=== PATIENT | female | born 1960 | race Caucasian/White ===

== ENCOUNTER 2018-05-25 15:19 | Emergency (ER) | payer OTHER ==
--- NOTE | 2018-05-25 16:11 | RAD REPORT ---
EXAM DESCRIPTION: RAD - Elbow Left 3 View - 05/25/2018 4:02 pm CLINICAL HISTORY: Left elbow pain status post fall FINDINGS: A joint effusion is present. No fracture is visualized. However in the setting of trauma a joint effusion usually indicates an occult fracture. Radial head/ neck is the most common site. No dislocation is seen. Bones are osteoporotic
--- NOTE | 2018-05-25 17:32 | ER ---
Nurse's Notes [facility] Name: Joanna Baxter Age: 57 yrs Sex: Female : 1960 Arrival Date: 05/25/2018 Time: 15:22 Bed 18 Private MD: Melvin Chamorro Diagnosis: Pain in left elbow-possible occult fracture Presentation: 05/25 15:24 Presenting complaint: Patient states: pain to elbow, down to my forearm, down to my ch wrist and up to my shoulder after falling around 1300. I scraped my knee and my nose too. I tripped over the sidewalk. Care prior to arrival: Medication(s) given: Tylenol. Mechanism of Injury: Fall from standing position. Trauma event details: Injury occurred in the [facility], Injury occurred: on a street or highway. Injury occurred: May 25, 2018 Injury occurred at: 13:00. 15:24 Acuity: LUZ 4 15:24 Method Of Arrival: Ambulatory 15:27 Transition of care: patient was not received from another setting of care. Onset of ch symptoms was May 25, 2018 at 13:00. Risk Assessment: Do you want to hurt yourself or someone else? Patient reports no desire to harm self or others. Initial Sepsis Screen: Does the patient meet any 2 criteria? No. Patient's initial sepsis screen is negative. Does the patient have a suspected source of infection? No. Patient's initial sepsis screen is negative. Triage Assessment: 15:28 General: Appears in no apparent distress. comfortable, Behavior is calm, cooperative, ch appropriate for age. Pain: Complains of pain in left arm. Trauma Activation: Not Applicable Physician: ED Physician; Name: ; Notified At: ; Arrived At: Physician: General Surgeon; Name: ; Notified At: ; Arrived At: Physician: Radiology; Name: ; Notified At: ; Arrived At: Physician: Respiratory; Name: ; Notified At: ; Arrived At: Physician: Lab; Name: ; Notified At: ; Arrived At: Historical: - Allergies: 15:28 No Known Allergies; ch - Home Meds: 15:28 insulin [Active]; Metoprolol Tartrate Oral [Active]; Lisinopril Oral [Active]; Lasix ch Oral [Active]; - PMHx: 15:28 Diabetes - IDDM; Hyperlipidemia; Hypertension; ch - PSHx: 15:28 ; carpel tunnel release; ch - Immunization history: Last tetanus immunization: > 10 years ago. - Social history:: Smoking status: Patient/guardian denies using tobacco, Patient uses alcohol, occasionally. Patient/guardian denies using street drugs. - Ebola Screening: : Patient negative for fever greater than or equal to 101.5 degrees Fahrenheit, and additional compatible Ebola Virus Disease symptoms Patient denies exposure to infectious person Patient denies travel to an Ebola-affected area in the 21 days before illness onset No symptoms or risks identified at this time. Screenin:20 Abuse screen: Denies threats or abuse. Denies injuries from another. Nutritional sg screening: No deficits noted. Tuberculosis screening: No symptoms or risk factors identified. Never had TB. Fall Risk Fall in past 12 months (25 points). Primary Survey: 15:24 A: Airway: patent. Breathing/Chest: Respiratory pattern: regular, Respiratory effort: ch spontaneous, unlabored, Breath sounds: clear. Circulation: Skin color: pink. Disability Alert. 18:27 Reassessment Airway Airway Patent Breathing/Chest Respiratory pattern Regular sr5 Respiratory effort Spontaneous Unlabored Circulation Pulses Palpable Disability Alert. Secondary Survey: 15:24 HEENT: Face Other pt has abrasion to nose and lip. Gastrointestinal: No deficits noted. ch : No signs and/or symptoms were reported regarding the genitourinary system. Musculoskeletal: Capillary refill < 3 seconds, in bilateral fingers. toes. Range of motion: limited in left elbow. Assessment: 17:20 General: Appears in no apparent distress. uncomfortable, well groomed, well developed, sg well nourished, Behavior is calm, cooperative, appropriate for age. Pain: Complains of pain in left elbow Pain does not radiate. Quality of pain is described as throbbing. Neuro: Level of Consciousness is awake, alert, obeys commands, Gait is steady, Speech is normal, Facial symmetry appears normal. Cardiovascular: No deficits noted. Patient's skin is warm and dry. Respiratory: Airway is patent Respiratory effort is even, unlabored, Respiratory pattern is regular, symmetrical. GI: No deficits noted. Abdomen is round non-distended. : No signs and/or symptoms were reported regarding the genitourinary system. EENT: No signs and/or symptoms were reported regarding the EENT system. Derm: Skin is pink, warm \T\ dry. Musculoskeletal: Circulation, motion, and sensation intact. Range of motion: intact in all extremities, Swelling absent. 18:27 Reassessment: Patient is alert, oriented x 3, equal unlabored respirations, skin sr5 warm/dry/pink. Splint in place to LEFT arm, sling, and ice pack in place. Cap refill <3 secs. Splint education provided. DC instructions provided with RX for tylenol/codeine. Steady gait out of ER with family. Pt wants note indicating fall occurred while at work today. Vital Signs: 15:28 BP 138 / 77; Pulse 73; Resp 15; Temp 98.9; Pulse Ox 99% on R/A; Weight 76.2 kg; Height ch 5 ft. 9 in. (175.26 cm); Pain 8/10; 18:10 BP 131 / 76; Pulse 70; Resp 16; Temp 99.2; Pulse Ox 97% on R/A; Pain 4/10; sr5 15:28 Body Mass Index 24.81 (76.20 kg, 175.26 cm) Ramin Coma Score: 18:27 Eye Response: spontaneous(4). Verbal Response: oriented(5). Motor Response: obeys sr5 commands(6). Total: 15. Trauma Score (Adult): 18:27 Eye Response: spontaneous(1); Verbal Response: oriented(1); Motor Response: obeys sr5 commands(2); Systolic BP: > 89 mm Hg(4); Respiratory Rate: 10 to 29 per min(4); [place] Score: 15; Trauma Score: 12 ED Course: 15:22 Patient arrived in ED. sb2 15:22 Melvin Chamorro MD is Private Physician. sb2 15:26 Triage completed. ch 15:28 Arm band placed on left wrist. Patient placed in waiting room. ch 16:01 X-ray completed. Portable x-ray completed in exam room. Patient tolerated procedure ml well. 16:02 XRAY Elbow LEFT 3 view In Process Unspecified. EDMS 17:17 Boone Maria NP is PHCP. pm1 17:17 Octaviano Jack MD is Attending Physician. pm1 17:31 Reagan Kim MD is Referral Physician. pm1 17:45 No provider procedures requiring assistance completed. Patient did not have IV access sg during this emergency room visit. Feng wrap to left elbow and left wrist Orthoglass splint: posterior arm Sling applied to left arm. 17:47 Gabby Boyd, RN is Primary Nurse. hb 17:58 Seth Stewart, RN is Primary Nurse. sg 18:27 Patient has correct armband on for positive identification. Bed in low position. Call sr5 light in reach. 18:27 Patient maintains SpO2 saturation greater than 95% on room air. sr5 18:32 Thermoregulation: warm blanket given to patient. sr5 Administered Medications: 17:50 Drug: [place] 10 mg-325 mg 1 tabs Route: PO; sg 18:20 Follow up: Response: Pain is decreased sr5 Output: 18:27 Urine: 150ml (Voided); Total: 150ml. sr5 Outcome: 17:31 Discharge ordered by MD. pm1 18:26 Patient left the ED. sr5 18:27 Discharged to home ambulatory, with family. sr5 18:27 Condition: good 18:31 Patient's length of stay in the Emergency Department was greater than 2 hours. ER sr5 dispoPatient's length of stay extended due to 18:32 Discharge instructions given to patient, family, Instructed on discharge instructions, sr5 follow up and referral plans. medication usage, splint care Demonstrated understanding of instructions, follow-up care, medications, splint care, Prescriptions given X 1. Signatures: Dispatcher [employer] EDMS Angela Hoyt RN RN Seth Stewart RN RN sg Lopez, Melissa ml Marinas, Patrick, FINANCIAL SERVICES AUDITOR FINANCIAL SERVICES AUDITOR pm1 Gabby Boyd RN RN hb Resecker, Sam, RN RN sr5 Marcie Henao sb2
--- NOTE | 2018-05-25 17:32 | EDPHYS ---
Physician Documentation [facility] Name: Joanna Baxter Age: 57 yrs Sex: Female : 1960 Arrival Date: 05/25/2018 Time: 15:22 Bed 18 Private MD: Melvin Chamorro ED Physician Octaviano Jack HPI: 05/25 17:18 This 57 yrs old Female presents to ER via Ambulatory with complaints of Fall pm1 Injury - left elbow pain. 17:18 Details of fall: The patient fell from an upright position, while walking. Onset: The pm1 symptoms/episode began/occurred just prior to arrival. Associated injuries: The patient sustained nose, abrasion, right knee, abrasion, left elbow, painful injury, swelling, Pain. Severity of symptoms: in the emergency department the symptoms are unchanged. The patient has not experienced similar symptoms in the past. The patient has not recently seen a physician. Patient was walking and tripped on the sidewalk. Patient landed on her left elbow and scratched her right knee and nose. Patient without any headache, LOC, neck pain. Historical: - Allergies: 15:28 No Known Allergies; ch - Home Meds: 15:28 insulin [Active]; Metoprolol Tartrate Oral [Active]; Lisinopril Oral [Active]; Lasix ch Oral [Active]; - PMHx: 15:28 Diabetes - IDDM; Hyperlipidemia; Hypertension; ch - PSHx: 15:28 ; carpel tunnel release; ch - Immunization history: Last tetanus immunization: > 10 years ago. - Social history:: Smoking status: Patient/guardian denies using tobacco, Patient uses alcohol, occasionally. Patient/guardian denies using street drugs. - Ebola Screening: : Patient negative for fever greater than or equal to 101.5 degrees Fahrenheit, and additional compatible Ebola Virus Disease symptoms Patient denies exposure to infectious person Patient denies travel to an Ebola-affected area in the 21 days before illness onset No symptoms or risks identified at this time. ROS: 17:18 Constitutional: Negative for fever, chills, and weight loss, Eyes: Negative for injury, pm1 pain, redness, and discharge, ENT: Negative for injury, pain, and discharge, Neck: Negative for injury, pain, and swelling, Cardiovascular: Negative for chest pain, palpitations, and edema, Respiratory: Negative for shortness of breath, cough, wheezing, and pleuritic chest pain, Abdomen/GI: Negative for abdominal pain, nausea, vomiting, diarrhea, and constipation, Back: Negative for injury and pain, : Negative for injury, bleeding, discharge, and swelling. 17:18 Neuro: Negative for headache, weakness, numbness, tingling, and seizure. 17:18 MS/extremity: Positive for pain, swelling, of the left elbow. 17:18 Skin: Positive for abrasion(s), of the right knee and nose. Exam: 17:18 Constitutional: This is a well developed, well nourished patient who is awake, alert, pm1 and in no acute distress. Eyes: Pupils equal round and reactive to light, extra-ocular motions intact. Lids and lashes normal. Conjunctiva and sclera are non-icteric and not injected. Cornea within normal limits. Periorbital areas with no swelling, redness, or edema. ENT: Nares patent. No nasal discharge, no septal abnormalities noted. Tympanic membranes are normal and external auditory canals are clear. Oropharynx with no redness, swelling, or masses, exudates, or evidence of obstruction, uvula midline. Mucous membranes moist. 17:18 Neck: Trachea midline, no thyromegaly or masses palpated, and no cervical lymphadenopathy. Supple, full range of motion without nuchal rigidity, or vertebral point tenderness. No Meningismus. Chest/axilla: Normal chest wall appearance and motion. Nontender with no deformity. No lesions are appreciated. Cardiovascular: Regular rate and rhythm with a normal S1 and S2. No gallops, murmurs, or rubs. Normal PMI, no JVD. No pulse deficits. Respiratory: Lungs have equal breath sounds bilaterally, clear to auscultation and percussion. No rales, rhonchi or wheezes noted. No increased work of breathing, no retractions or nasal flaring. Abdomen/GI: Soft, non-tender, with normal bowel sounds. No distension or tympany. No guarding or rebound. No evidence of tenderness throughout. Back: No spinal tenderness. No costovertebral tenderness. Full range of motion. 17:18 Head/face: Noted is no obvious of injury or deformity except abrasion(s), of the nose. 17:18 Musculoskeletal/extremity: Extremities: grossly normal except: noted in the left elbow: swelling, tenderness. 17:18 Skin: Appearance: normal except for affected area, injury, abrasion(s), small abrasion noted, of the right knee. 17:18 Neuro: Orientation: is normal, Motor: moves all fours. Vital Signs: 15:28 BP 138 / 77; Pulse 73; Resp 15; Temp 98.9; Pulse Ox 99% on R/A; Weight 76.2 kg; Height ch 5 ft. 9 in. (175.26 cm); Pain 8/10; 18:10 BP 131 / 76; Pulse 70; Resp 16; Temp 99.2; Pulse Ox 97% on R/A; Pain 4/10; sr5 15:28 Body Mass Index 24.81 (76.20 kg, 175.26 cm) ch Ramin Coma Score: 18:27 Eye Response: spontaneous(4). Verbal Response: oriented(5). Motor Response: obeys sr5 commands(6). Total: 15. Trauma Score (Adult): 18:27 Eye Response: spontaneous(1); Verbal Response: oriented(1); Motor Response: obeys sr5 commands(2); Systolic BP: > 89 mm Hg(4); Respiratory Rate: 10 to 29 per min(4); Flas[place] Score: 15; Trauma Score: 12 Procedures: 18:00 Splinting: Splint applied to left elbow using Orthoglass splint, applied by tech. pm1 Examined by me, post splint application: neurovascular intact, 2+ distal pulses palpable, brisk capillary refill noted, Patient tolerated well. MDM: 17:17 Patient medically screened. pm1 17:30 Data reviewed: vital signs. Data interpreted: Pulse oximetry: on room air is 99 %. pm1 Interpretation: normal. Counseling: I had a detailed discussion with the patient and/or guardian regarding: the historical points, exam findings, and any diagnostic results supporting the discharge/admit diagnosis, radiology results, the need for outpatient follow up, for definitive care, a orthopedic surgeon, to return to the emergency department if symptoms worsen or persist or if there are any questions or concerns that arise at home. 05/25 15:30 Order name: XRAY Elbow LEFT 3 view; Complete Time: 17:18 05/25 15:30 Order name: Arm-Sling; Complete Time: 15:30 05/25 15:30 Order name: Ice pack; Complete Time: 15:30 05/25 17:33 Order name: Splint - Elbow - Posterior; Complete Time: 17:51 pm1 Administered Medications: 17:50 Drug: [place] 10 mg-325 mg 1 tabs Route: PO; 18:20 Follow up: Response: Pain is decreased sr5 Disposition: 05/25/18 17:31 Discharged to Home. Impression: Pain in left elbow - possible occult fracture. - Condition is Stable. - Discharge Instructions: Cast or Splint Care, Adult, Elbow Fracture, Pediatric, Elbow Contusion, How to Use a Sling. - Prescriptions for Tylenol- Codeine #3 300-30 mg Oral Tablet - take 2 tablets by ORAL route every 6 hours As needed; 20 tablet. - Medication Reconciliation Form, Thank You Letter, Prescription Opioid Use form. - Follow up: Emergency Department; When: As needed; Reason: Worsening of condition. Follow up: Reagan Kim MD; When: 2 - 3 days; Reason: Recheck today's complaints, Continuance of care, Re-evaluation by your physician. - Problem is new. - Symptoms have improved. Addendum: 05/28/2018 10:13 Co-signature as Attending Physician, Octaviano Jack MD I agree with the assessment and k dr plan of care. Signatures: Dispatcher [employer] EDMS Angela Hoyt, RN CLYDE Seth Stewart RN CLYDE Octaviano Jack MD MD [facility] Boone Maria, ARISTEO MARINE FIRER pm1 [facility] CenterClaude ashton RN RN sr5 Corrections: (The following items were deleted from the chart) 05/25 18:26 17:31 05/25/2018 17:31 Discharged to Home. Impression: Pain in left elbow - possible sr5 occult fracture. Condition is Stable. Forms are Medication Reconciliation Form, Thank You Letter, Antibiotic Education, Prescription Opioid Use. Follow up: Emergency Department; When: As needed; Reason: Worsening of condition. Follow up: Reagan Kim; When: 2 - 3 days; Reason: Recheck today's complaints, Continuance of care, Re-evaluation by your physician. Problem is new. Symptoms have improved. pm1
[2018-05-25] MEDS ORDERED: HYDROCODONE/APAP 10/325 TAB ONE (17:54)
[2018-05-25 18:52] VITALS: BP 138/77; TEMP 98.9; O2SAT 99
== END 2018-05-25 18:26 | disposition home or self-care (01) ==
LOC: ER 15:19
PROC: 2W3DX1Z Immobilization of Left Lower Arm using Splint (ICD-10-PCS; principal; 2018-05-25)
DX: M25.522 Pain in left elbow (principal); I10 Essential (primary) hypertension; E11.9 Type 2 diabetes mellitus without complications; E78.5 Hyperlipidemia, unspecified; W01.10XA Fall on same level from slipping, tripping and stumbling with subsequent striking against unspecified object, initial encounter; Y93.9 Activity, unspecified; Y92.89 Other specified places as the place of occurrence of the external cause
CPT/HCPCS: 99284

== ENCOUNTER 2018-08-02 12:11 | Emergency (ER) | payer OTHER ==
[2018-08-02] MEDS ORDERED: KETOROLAC 30 MG/ML INJ ONE (13:03)
[2018-08-02] MEDS ORDERED: NA CHLORIDE 0.9% 1,000 ML ONE (13:03)
[2018-08-02 13:11] LABS: Urine Bacteria LOADED /HPF (<20); Urine Culture Reflex Order REFLEXED
--- NOTE | 2018-08-02 13:26 | RAD REPORT ---
EXAM DESCRIPTION: CT - Head Brain Wo Cont - 08/02/2018 1:18 pm COMPARISON: None. TECHNIQUE: Axial 5 mm thick images of the head were obtained without IV contrast. All CT scans are performed using dose optimization technique as appropriate and may include automated exposure control or mA/KV adjustment according to patient size. FINDINGS: No intracranial hemorrhage, mass, edema or shift of mid-line structures. No acute infarcti on changes seen. No abnormal extra-axial fluid collections. Ventricles are normal. No significant atr ophy or chronic ischemic change. Mastoid air cells and visualized portions of the paranasal sinuses are clear. No acute bony findings. IMPRESSION: Negative non-contrast CT head examination.
[2018-08-02 13:43] LABS: Absolute Lymphocytes (CBC) 0.5 K/uL (0.7-4.9); Absolute Monocytes 0.5 K/uL (0.1-1.3); Absolute Neutrophil 6.2 K/uL (1.8-8.0); Basophils % 0.7 % (0-1.3); Hematocrit 34.7 % (36.0-45.0); MCH 31.3 pg (27.0-35.0); MCV 88.5 fL (80-100); MPV 8.8 fL (7.6-11.3); Monocytes % 6.7 % (3.3-12.3); RBC Red Blood Cell Count 3.92 M/uL (3.86-4.86)
[2018-08-02] MEDS ORDERED: CEFTRIAXONE/SWI 1gm 1 GM/10 ML SYR ONE (13:48)
[2018-08-02 13:54] LABS: Potassium 3.7 mmol/L (3.5-5.1)
[2018-08-02 14:06] LABS: Urine White Blood Cell Casts OK
[2018-08-02 14:07] LABS: Blood Morphology Comment NOT SEEN (NOT SEEN); Platelet Estimate ADEQ
--- NOTE | 2018-08-02 14:43 | ER ---
Nurse's Notes [facility] Name: Joanna Baxter Age: 57 yrs Sex: Female : 1960 Arrival Date: 08/02/2018 Time: 12:13 Bed 15 Private MD: Melvin Chamorro Diagnosis: Cystitis;Headache Presentation: 08/02 12:19 Presenting complaint: Patient states: occipital headache last night and frontal sv headache this morning. c/o photosensitivity, fever, chills, nausea started last night. Tylenol taken at 0900, ASA taken at 1000. Transition of care: patient was not received from another setting of care. Onset of symptoms was August 01, 2018. Care prior to arrival: None. 12:19 Method Of Arrival: Ambulatory sv 12:19 Acuity: LUZ 3 sv 12:45 Risk Assessment: Do you want to hurt yourself or someone else? Patient reports no em desire to harm self or others. Initial Sepsis Screen: Does the patient meet any 2 criteria? No. Patient's initial sepsis screen is negative. Does the patient have a suspected source of infection? No. Patient's initial sepsis screen is negative. Triage Assessment: 12:19 Headache History: The patient has had previous headaches and this one is different than sv previous episodes. General: Appears in no apparent distress. uncomfortable, Behavior is calm, cooperative. Pain: Complains of pain in forehead, right sikh and left sikh Pain currently is 10 out of 10 on a pain scale. Neuro: Level of Consciousness is awake, alert, obeys commands, Oriented to person, place, time, situation, Moves all extremities. Full function Gait is steady, Speech is normal, Reports photophobia. Respiratory: Respiratory effort is even, unlabored, Respiratory pattern is regular, symmetrical. 15:01 Pain: Also complains of. aj Historical: - Allergies: 12:20 No Known Allergies; sv - PMHx: 12:20 Diabetes - IDDM; Hyperlipidemia; Hypertension; sv - PSHx: 12:20 ; carpel tunnel release; sv - Immunization history:: Adult Immunizations up to date. - Social history:: Smoking status: Patient/guardian denies using tobacco. - Ebola Screening: : Patient negative for fever greater than or equal to 101.5 degrees Fahrenheit, and additional compatible Ebola Virus Disease symptoms Patient denies exposure to infectious person Patient denies travel to an Ebola-affected area in the 21 days before illness onset No symptoms or risks identified at this time. Screenin:45 Abuse screen: Denies threats or abuse. Nutritional screening: No deficits noted. em Tuberculosis screening: No symptoms or risk factors identified. Fall Risk None identified. Assessment: 12:50 General: Appears in no apparent distress. comfortable, Behavior is calm, cooperative, em Reports fever for 0-12 hours. Pain: Complains of pain in left sikh and right sikh and forehead. Neuro: Level of Consciousness is awake, alert, obeys commands, Oriented to person, place, time, situation, Moves all extremities. Gait is steady, Speech is normal, Facial symmetry appears normal, Reports headache Denies weakness dizziness. Cardiovascular: Capillary refill < 3 seconds Patient's skin is warm and dry. Respiratory: Airway is patent Respiratory effort is even, unlabored, Respiratory pattern is regular, symmetrical. GI: Abdomen is flat, Abd is soft and non tender X 4 quads. : Urine is orange in color, pt states she has been taking Azo Reports burning with urination, pain with urination. EENT: No signs and/or symptoms were reported regarding the EENT system. Derm: Skin is intact, Skin is pink, warm \T\ dry. Musculoskeletal: Range of motion: intact in all extremities. 12:50 Reassessment: I agree with assessment completed by Chance Whitley LVN . aa5 14:15 Reassessment: Patient appears in no apparent distress at this time. Patient and/or em family updated on plan of care and expected duration. Pain level reassessed. Patient is alert, oriented x 3, equal unlabored respirations, skin warm/dry/pink. 15:03 Reassessment: Patient appears in no apparent distress at this time. Patient and/or em family updated on plan of care and expected duration. Pain level reassessed. Patient is alert, oriented x 3, equal unlabored respirations, skin warm/dry/pink. Vital Signs: 12:20 BP 127 / 75; Pulse 94; Resp 18; Temp 98.4; Pulse Ox 94% ; Weight 72.57 kg; Height 5 ft. sv 5 in. (165.10 cm); Pain 10/10; 15:00 BP 139 / 74; Pulse 81; Resp 16; Pulse Ox 94% on R/A; aj 12:20 Body Mass Index 26.63 (72.57 kg, 165.10 cm) sv ED Course: 12:13 Patient arrived in ED. mr 12:14 Melvin Chamorro MD is Private Physician. mr 12:20 Triage completed. sv 12:20 Arm band placed on. sv 12:21 Chance Whitley LVN is Primary Nurse. em 12:22 George Posada MD is Attending Physician. gs 12:45 Patient has correct armband on for positive identification. Bed in low position. Call em light in reach. Adult w/ patient. 12:45 No provider procedures requiring assistance completed. em 13:18 CT Head Brain wo Cont In Process Unspecified. EDMS 13:30 Initial lab(s) drawn, by me, sent to lab. Inserted saline lock: 20 gauge in right em antecubital area, using aseptic technique. Blood collected. 15:00 IV discontinued, intact, bleeding controlled, No redness/swelling at site. Pressure aj dressing applied. Administered Medications: 13:35 Drug: NS 0.9% 1000 ml Route: IV; Rate: 1 bolus; Site: right antecubital; aa5 15:02 Follow up: IV Status: Completed infusion; IV Intake: 1000ml em 13:35 Drug: TORadol 30 mg Route: IVP; Site: right antecubital; aa5 14:00 Follow up: Response: No adverse reaction; Pain is decreased em 14:11 Drug: Rocephin - (cefTRIAXone) 1 grams Route: IVPB; Infused Over: 30 mins; Site: right aa5 antecubital; 15:00 Follow up: IV Status: Completed infusion; IV Intake: 10ml em Intake: 15:00 IV: 10ml; Total: 10ml. em 15:02 IV: 1000ml; Total: 1010ml. em Outcome: 14:42 Discharge ordered by . gs 15:00 Discharged to home ambulatory, with family. aj 15:00 Condition: good 15:00 Discharge instructions given to patient, Instructed on discharge instructions, follow up and referral plans. medication usage, Demonstrated understanding of instructions, follow-up care, medications, Prescriptions given X 1. 15:03 Patient left the ED. em Addendum: 08/05/2018 07:16 Addendum: Culture Results: Positive urine culture. No further action required. Bacteria i w sensitive to prescribed antibiotic. Signatures: Dispatcher [employer] Nadine Cooepr, RN Dianelys Guevara, RN CLYDE laith Gautam, Isis mr Gutierrez, Chance, SEISMOMETER OPERATOR SEISMOMETER OPERATOR Rachel Clements, RN Denise Guerrero, RN RN aa5 George Posada MD MD gs Corrections: (The following items were deleted from the chart) 08/02 16:59 12:50 General: Appears in no apparent distress. comfortable, Behavior is calm, aa5 cooperative, Reports fever for em
--- NOTE | 2018-08-02 14:43 | EDPHYS ---
Physician Documentation [facility] Name: Joanna Baxter Age: 57 yrs Sex: Female : 1960 Arrival Date: 08/02/2018 Time: 12:13 Bed 15 Private MD: Melvin Chamorro ED Physician George Posada HPI: 08/02 15:21 This 57 yrs old Female presents to ER via Ambulatory with complaints of gs Urinary Problem, Headache, Fever. 15:21 Onset: The symptoms/episode began/occurred 3 day(s) ago, and became persistent. gs Modifying factors: The symptoms are alleviated by nothing, the symptoms are aggravated by nothing. Associated signs and symptoms: Pertinent positives: fever. Severity of symptoms: At their worst the symptoms were moderate, in the emergency department the symptoms have improved, moderately. The patient has experienced similar episodes in the past, a few times. Historical: - Allergies: 12:20 No Known Allergies; sv - PMHx: 12:20 Diabetes - IDDM; Hyperlipidemia; Hypertension; sv - PSHx: 12:20 ; carpel tunnel release; sv - Immunization history:: Adult Immunizations up to date. - Social history:: Smoking status: Patient/guardian denies using tobacco. - Ebola Screening: : Patient negative for fever greater than or equal to 101.5 degrees Fahrenheit, and additional compatible Ebola Virus Disease symptoms Patient denies exposure to infectious person Patient denies travel to an Ebola-affected area in the 21 days before illness onset No symptoms or risks identified at this time. ROS: 15:21 Neuro: Positive for headache, said sudden onset last night sudden severe, all but gs resolved now.. 15:21 All other systems are negative. gs Exam: 15:21 Head/Face: Normocephalic, atraumatic. Eyes: Pupils equal round and reactive to light, gs extra-ocular motions intact. Lids and lashes normal. Conjunctiva and sclera are non-icteric and not injected. Cornea within normal limits. Periorbital areas with no swelling, redness, or edema. ENT: Nares patent. No nasal discharge, no septal abnormalities noted. Tympanic membranes are normal and external auditory canals are clear. Oropharynx with no redness, swelling, or masses, exudates, or evidence of obstruction, uvula midline. Mucous membranes moist. Neck: Trachea midline, no thyromegaly or masses palpated, and no cervical lymphadenopathy. Supple, full range of motion without nuchal rigidity, or vertebral point tenderness. No Meningismus. Chest/axilla: Normal chest wall appearance and motion. Nontender with no deformity. No lesions are appreciated. Cardiovascular: Regular rate and rhythm with a normal S1 and S2. No gallops, murmurs, or rubs. Normal PMI, no JVD. No pulse deficits. Respiratory: Lungs have equal breath sounds bilaterally, clear to auscultation and percussion. No rales, rhonchi or wheezes noted. No increased work of breathing, no retractions or nasal flaring. Abdomen/GI: Soft, non-tender, with normal bowel sounds. No distension or tympany. No guarding or rebound. No evidence of tenderness throughout. Back: No spinal tenderness. No costovertebral tenderness. Full range of motion. Skin: Warm, dry with normal turgor. Normal color with no rashes, no lesions, and no evidence of cellulitis. MS/ Extremity: Pulses equal, no cyanosis. Neurovascular intact. Full, normal range of motion. Neuro: Awake and alert, GCS 15, oriented to person, place, time, and situation. Cranial nerves II-XII grossly intact. Motor strength 5/5 in all extremities. Sensory grossly intact. Cerebellar exam normal. Normal gait. 15:21 Constitutional: The patient appears alert, awake. Vital Signs: 12:20 BP 127 / 75; Pulse 94; Resp 18; Temp 98.4; Pulse Ox 94% ; Weight 72.57 kg; Height 5 ft. sv 5 in. (165.10 cm); Pain 10/10; 15:00 BP 139 / 74; Pulse 81; Resp 16; Pulse Ox 94% on R/A; aj 12:20 Body Mass Index 26.63 (72.57 kg, 165.10 cm) sv MDM: 12:32 Patient medically screened. 15:21 Differential diagnosis: urinary tract infection. Data reviewed: vital signs, nurses gs notes, lab test result(s), radiologic studies. Response to treatment: the patient's symptoms have markedly improved after treatment, and as a result, I will discharge patient. 08/02 12:38 Order name: CBC with Diff; Complete Time: 14:35 gs 08/02 12:38 Order name: Basic Metabolic Panel; Complete Time: 14:35 08/02 12:38 Order name: Urine Microscopic Only; Complete Time: 13:29 08/02 13:12 Order name: Urine Culture [facility] 08/02 13:45 Order name: CBC Smear Scan; Complete Time: 14:35 [facility] 08/02 14:15 Order name: Urine Dipstick--Ancillary (enter results) 08/02 12:38 Order name: CT Head Brain wo Cont; Complete Time: 13:29 08/02 12:38 Order name: Urine Dipstick-Ancillary (obtain specimen); Complete Time: 12:55 Administered Medications: 13:35 Drug: NS 0.9% 1000 ml Route: IV; Rate: 1 bolus; Site: right antecubital; aa5 15:02 Follow up: IV Status: Completed infusion; IV Intake: 1000ml em 13:35 Drug: TORadol 30 mg Route: IVP; Site: right antecubital; aa5 14:00 Follow up: Response: No adverse reaction; Pain is decreased em 14:11 Drug: Rocephin - (cefTRIAXone) 1 grams Route: IVPB; Infused Over: 30 mins; Site: right aa5 antecubital; 15:00 Follow up: IV Status: Completed infusion; IV Intake: 10ml em Disposition: 08/02/18 14:42 Discharged to Home. Impression: Cystitis, Headache. - Condition is Stable. - Discharge Instructions: General Headache Without Cause, Urinary Tract Infection, Adult. - Prescriptions for Macrobid 100 mg Oral Capsule - take 1 capsule by ORAL route every 12 hours for 7 days; 14 capsule. - Medication Reconciliation Form, Thank You Letter, Antibiotic Education, Prescription Opioid Use form. - Follow up: Private Physician; When: 2 - 3 days; Reason: Re-evaluation by your physician. Signatures: Dispatcher [employer] Nadine Cooper RN RN sv Munoz, Edgar, TOURIST INFORMATION ASSISTANT TOURIST INFORMATION ASSISTANT Denise Boston RN RN aa5 George Posada MD MD Corrections: (The following items were deleted from the chart) 15:03 14:42 08/02/2018 14:42 Discharged to Home. Impression: Cystitis; Headache. Condition is em Stable. Forms are Medication Reconciliation Form, Thank You Letter, Antibiotic Education, Prescription Opioid Use. Follow up: Private Physician; When: 2 - 3 days; Reason: Re-evaluation by your physician. gs
[2018-08-02 15:07] VITALS: TEMP 98.4; O2SAT 94
[2018-08-02 15:08] VITALS: BP 139/74
[2018-08-02 20:15] LABS: Urine Blood TRACE (NEG); Urine Glucose 2+ (NEG); Urine Protein 2+ (NEG); Urine Specific Gravity <1.005 (1.005-1.030)
== END 2018-08-02 15:03 | disposition home or self-care (01) ==
LOC: ER 12:11
DX: N30.90 Cystitis, unspecified without hematuria (principal); R51 Headache
CPT/HCPCS: 36415; 70450; 80048; 81003; 81015; 85025; 87077; 87086; 87088; 87186; 96361; 96365; 96375; 99284; J0696; J7030

== ENCOUNTER 2020-09-20 04:00 | Emergency (ER) | payer BC ==
[2020-09-20] MEDS ORDERED: D50W 50 ML IV ONE (04:31)
[2020-09-20 04:55] LABS: Absolute Lymphocytes (CBC) 1.9 K/uL (0.7-4.9); Basophils % 0.4 % (0-1.3); Hematocrit 38.5 % (36.0-45.0); Lymphocytes % 15.4 % (15.3-44.8); MPV 9.5 fL (7.6-11.3); RBC Red Blood Cell Count 4.43 M/uL (3.86-4.86)
[2020-09-20 04:59] LABS: Protime INR 0.85
[2020-09-20] MEDS ORDERED: D5 0.45 NS 1,000 ML IV ONE (05:08)
[2020-09-20 05:25] LABS: Albumin 4.3 g/dL (3.4-5.0); Bilirubin Direct 0.2 mg/dL (0-0.2); Bilirubin Total 0.5 mg/dL (0.2-1.0); Protein, Total 7.8 g/dL (6.4-8.2)
--- NOTE | 2020-09-20 07:02 | ER ---
Nurse's Notes [facility] Name: Joanna Baxter Age: 59 yrs Sex: Female : 1960 Arrival Date: 09/20/2020 Time: 04:01 Bed 14 Private MD: Diagnosis: Hypoglycemia, unspecified Presentation: 09/20 04:05 Chief complaint: EMS states: PT woke up thrashing around. denies alcohol use. jb4 Pt's is diabetic and has a history of hypertension. Coronavirus screen: Client denies travel out of the [place] in the last 14 days. At this time, the client does not indicate any symptoms associated with coronavirus-19. Ebola Screen: No symptoms or risks identified at this time. Initial Sepsis Screen: Does the patient meet any 2 criteria? Altered Mental Status. Yes Does the patient have a suspected source of infection? No. Patient's initial sepsis screen is negative. Risk Assessment: Do you want to hurt yourself or someone else? Patient reports no desire to harm self or others. Onset of symptoms was September 20, 2020. Care prior to arrival: IV initiated. 20 GA, in the right forearm, Glucose check: 148. Transition of care: patient was not received from another setting of care. 04:05 Method Of Arrival: EMS: [facility] jb4 04:05 Acuity: LUZ 2 jb4 Historical: - Allergies: 04:05 No Known Allergies; jb4 - Home Meds: 04:05 insulin [Active]; lisinopril Oral [Active]; Lasix Oral [Active]; Metoprolol Tartrate jb4 Oral [Active]; - PMHx: 04:05 Diabetes - IDDM; Hyperlipidemia; Hypertension; jb4 - PSHx: 04:05 ; carpel tunnel release; jb4 - Immunization history:: Adult Immunizations up to date. - Social history:: Smoking status: unknown. Screenin:05 Abuse screen: Denies threats or abuse. Nutritional screening: No deficits noted. jb4 Tuberculosis screening: No symptoms or risk factors identified. Fall Risk IV access (20 points). Mental Status- Overestimates/Forgets Limitations (15 pts.). Total Gottlieb Fall Scale indicates Low Risk Score (25-44 pts). Fall prevention measures have been instituted. Side Rails Up X 2 Placed close to Nursing Station Frequent Obs/Assesments occuring. Assessment: 04:05 General: Appears distressed, uncomfortable, Behavior is restless, uncooperative. Pain: jb4 Unable to use pain scale. Patient is disoriented. Neuro: Level of Consciousness is awake, Oriented to none. Cardiovascular: Patient's skin is warm and dry. Respiratory: Respiratory effort is even, unlabored, Respiratory pattern is regular, symmetrical. GI: PT appears to have vomited multiple times MACARONI MAKER. : No signs and/or symptoms were reported regarding the genitourinary system. EENT: No signs and/or symptoms were reported regarding the EENT system. Derm: Skin is intact, Skin is pink, warm \T\ dry. Musculoskeletal: Circulation, motion, and sensation intact. Range of motion: intact in all extremities. 04:20 Reassessment: PT POC BS was 36, notified Provider with orders made and carried out. 04:29 Reassessment: PT MUCH MORE ALERT AND ORIENTED, WAS ABLE TO AMBULATE AND COMMUNICATE. 04:37 Reassessment: Patient appears in no apparent distress at this time. Patient and/or jb4 family updated on plan of care and expected duration. Pain level reassessed. Patient is alert, oriented x 3, equal unlabored respirations, skin warm/dry/pink. PT is no longer restless. Pt is awake and alert, responds to verbal stimuli spontaneously. Is A\T\Ox4. no s/s of pain or distress noted. Able to ambulate with steady gait, denies pain. Given bath clothes to clean her hair per request. Patient states symptoms have improved. 04:42 Reassessment: Given sandwich and drink per Dr. Hill and pt's request. jb4 05:00 Reassessment: Patient appears in no apparent distress at this time. No changes from jb4 previously documented assessment. Patient and/or family updated on plan of care and expected duration. Pain level reassessed. Patient is alert, oriented x 3, equal unlabored respirations, skin warm/dry/pink. 05:35 Reassessment: Patient appears in no apparent distress at this time. Patient and/or jb4 family updated on plan of care and expected duration. Pain level reassessed. Patient is alert, oriented x 3, equal unlabored respirations, skin warm/dry/pink. BGL of 248, provider notified, instructed to continue infusion of D5 1/2 NS, and recheck in 30 minutes. 06:30 Reassessment: Patient appears in no apparent distress at this time. Patient and/or jb4 family updated on plan of care and expected duration. Pain level reassessed. Patient is alert, oriented x 3, equal unlabored respirations, skin warm/dry/pink. PT calling ride home. 07:26 General: Appears in no apparent distress. comfortable, Behavior is calm, cooperative, zb appropriate for age. Pain: Denies pain. Neuro: Level of Consciousness is awake, alert, obeys commands, Oriented to person, place, time, situation. Cardiovascular: Heart tones S1 S2 present Patient's skin is warm and dry. Respiratory: Airway is patent Respiratory effort is even, unlabored, Respiratory pattern is regular, symmetrical. GI: Abdomen is flat, non-distended, Reports some mild nausea. : No signs and/or symptoms were reported regarding the genitourinary system. EENT: No signs and/or symptoms were reported regarding the EENT system. Derm: Skin is intact, Skin is pink, warm \T\ dry. normal. Musculoskeletal: Circulation, motion, and sensation intact. Range of motion: intact in all extremities. 07:28 Reassessment: BGL 276, pt aox4. discharge pending patient ride. zb Vital Signs: 04:05 BP 164 / 72; Pulse 93; Resp 16; Temp 97.5; Pulse Ox 100% on R/A; jb4 05:00 BP 166 / 76; Pulse 87; Resp 16; Pulse Ox 99% on R/A; Pain 0/10; jb4 05:30 BP 157 / 76; Pulse 89; Resp 16; Pulse Ox 98% on R/A; jb4 06:30 BP 158 / 81; Pulse 98; Resp 16; Pulse Ox 98% on R/A; jb4 ED Course: 04:01 Patient arrived in ED. cl3 04:03 Masood Hill MD is Attending Physician. tw4 04:05 Ab Mcmanus, CLYDE is Primary Nurse. jb4 04:05 Arm band placed on right wrist. jb4 04:05 Patient has correct armband on for positive identification. Bed in low position. Call jb4 light in reach. Side rails up X 1. Pulse ox on. NIBP on. 04:05 Maintain EMS IV. Dressing intact. Good blood return noted. Site clean \T\ dry. Gauge \T\ arianna 4 site: 20g RFA. 04:33 Triage completed. jb4 08:29 No provider procedures requiring assistance completed. IV discontinued, intact, zb bleeding controlled, No redness/swelling at site. Pressure dressing applied. Administered Medications: 04:23 Drug: D50W 50 ml Route: IVP; Site: right forearm; 04:58 Drug: D5-1/2 NS 1000 ml Route: IV; Rate: 100 ml/hr; Site: right forearm; jb4 Point of Care Testing: Blood Glucose: 04:39 Blood Glucose: 159 mg/dL; jb4 Ranges: Outcome: 07:01 Discharge ordered by . vipul 08:29 Discharged to home ambulatory. zb 08:29 Condition: good 08:29 Discharge instructions given to patient, Instructed on discharge instructions, follow up and referral plans. Demonstrated understanding of instructions, follow-up care. 08:30 Patient left the ED. zb Signatures: bA Mcmanus, RN RN jb4 Sonya Bowers Masood Hill MD MD tw4 Cammie Michaels cl3 Karin Badillo RN RN zb Corrections: (The following items were deleted from the chart) 07:29 07:28 Reassessment: BGL 276 zb zb
--- NOTE | 2020-09-20 07:02 | EDPHYS ---
Physician Documentation [facility] Name: Joanna Baxter Age: 59 yrs Sex: Female : 1960 Arrival Date: 09/20/2020 Time: 04:01 Bed 14 Private MD: ED Physician Masood Hill HPI: 09/20 04:06 This 59 yrs old Female presents to ER via Unassigned with complaints of tw4 Altered Mental Status. 04:06 The patient presents with decreased mental status, decreased responsiveness. Onset: The tw4 symptoms/episode began/occurred today. Onset: The symptoms/episode began/occurred just prior to arrival. Possible causes: alcohol, has a history of chronic alcohol abuse, low blood sugar. Associated signs and symptoms: Pertinent positives: vomiting. Current symptoms: In the emergency department the patient's symptoms are unchanged from the initial presentation. The patient has not experienced similar symptoms in the past. Historical: - Allergies: 04:05 No Known Allergies; jb4 - Home Meds: 04:05 insulin [Active]; lisinopril Oral [Active]; Lasix Oral [Active]; Metoprolol Tartrate jb4 Oral [Active]; - PMHx: 04:05 Diabetes - IDDM; Hyperlipidemia; Hypertension; jb4 - PSHx: 04:05 ; carpel tunnel release; jb4 - Immunization history:: Adult Immunizations up to date. - Social history:: Smoking status: unknown. ROS: 04:06 Unable to obtain ROS due to altered mental status. tw4 Exam: 04:06 Head/Face: Normocephalic, atraumatic. Chest/axilla: Normal chest wall appearance and tw4 motion. Nontender with no deformity. No lesions are appreciated. Cardiovascular: Regular rate and rhythm with a normal S1 and S2. No gallops, murmurs, or rubs. Normal PMI, no JVD. No pulse deficits. Respiratory: Lungs have equal breath sounds bilaterally, clear to auscultation and percussion. No rales, rhonchi or wheezes noted. No increased work of breathing, no retractions or nasal flaring. Abdomen/GI: Soft, non-tender, with normal bowel sounds. No distension or tympany. No guarding or rebound. No evidence of tenderness throughout. Back: No spinal tenderness. No costovertebral tenderness. Full range of motion. MS/ Extremity: Pulses equal, no cyanosis. Neurovascular intact. Full, normal range of motion. Neuro: Awake and alert, GCS 15, oriented to person, place, time, and situation. Cranial nerves II-XII grossly intact. Motor strength 5/5 in all extremities. Sensory grossly intact. Cerebellar exam normal. Normal gait. 04:06 Constitutional: The patient appears awake, obviously ill, unkempt. Vital Signs: 04:05 BP 164 / 72; Pulse 93; Resp 16; Temp 97.5; Pulse Ox 100% on R/A; jb4 05:00 BP 166 / 76; Pulse 87; Resp 16; Pulse Ox 99% on R/A; Pain 0/10; jb4 05:30 BP 157 / 76; Pulse 89; Resp 16; Pulse Ox 98% on R/A; jb4 06:30 BP 158 / 81; Pulse 98; Resp 16; Pulse Ox 98% on R/A; jb4 MDM: 04:03 Patient medically screened. tw4 04:06 Data reviewed: vital signs, nurses notes. tw4 05:59 Differential Diagnosis: hypoglycemia, intracranial bleed. Data interpreted: Pulse tw4 oximetry: Interpretation: normal. ED course: Pt BS was checked and found to be 38 Pt given 1 amp of D50 and has improved mental status. Pt eating and tolerating po. 09/20 04:04 Order name: Basic Metabolic Panel tw4 09/20 04:04 Order name: CBC with Diff tw4 09/20 04:04 Order name: Hepatic Function tw4 09/20 04:04 Order name: Lipase tw4 09/20 04:04 Order name: Magnesium tw4 09/20 04:04 Order name: Protime (+inr) tw4 09/20 04:04 Order name: Ptt, Activated tw4 09/20 04:04 Order name: Alcohol Level tw4 09/20 04:36 Order name: Glucose, Ancillary Testing EDMS 09/20 04:50 Order name: Glucose, Ancillary Testing EDMS 09/20 05:48 Order name: Glucose, Ancillary Testing EDMS 09/20 06:13 Order name: Glucose, Ancillary Testing EDMS 09/20 06:40 Order name: Glucose, Ancillary Testing EDMS 09/20 04:04 Order name: Cardiac monitoring; Complete Time: 04:39 tw4 09/20 04:04 Order name: IV Saline Lock; Complete Time: 04:39 09/20 04:04 Order name: Labs collected and sent; Complete Time: 04:39 09/20 04:04 Order name: NPO; Complete Time: 04:39 09/20 04:04 Order name: O2 Per Protocol; Complete Time: 04:39 09/20 04:04 Order name: O2 Sat Monitoring; Complete Time: 04:39 09/20 07:36 Order name: Glucose, Ancillary Testing EDMS Administered Medications: 04:23 Drug: D50W 50 ml Route: IVP; Site: right forearm; 04:58 Drug: D5-1/2 NS 1000 ml Route: IV; Rate: 100 ml/hr; Site: right forearm; 4 Point of Care Testing: Blood Glucose: 04:39 Blood Glucose: 159 mg/dL; jb4 Ranges: Critical Glucose Levels:Adult <50 mg/dl or >400 mg/dl <40 mg/dl or >180 mg/dl Disposition: 09/20/20 07:01 Discharged to Home. Impression: Hypoglycemia, unspecified. - Condition is Stable. - Discharge Instructions: Hypoglycemia, Blood Glucose Monitoring, Adult. - Medication Reconciliation Form, Thank You Letter, Antibiotic Education, Prescription Opioid Use form. - Follow up: Private Physician; When: Upon discharge from the Emergency Department; Reason: Recheck today's complaints, Continuance of care, Re-evaluation by your physician. - Problem is new. - Symptoms have improved. Signatures: Dispatcher [employer] EDAR Ab Mcmanus RN RN jb4 Sonya Bowers Masood Hill MD MD tw4 Karin Badillo RN RN zb Corrections: (The following items were deleted from the chart) 04:38 04:05 Head Brain Wo Cont+CT.RAD.BRZ ordered. EDAR EDMS 04:39 04:04 Urine Dipstick-Ancillary ordered. 4 jb4 08:30 07:01 09/20/2020 07:01 Discharged to Home. Impression: Hypoglycemia, unspecified. zb Condition is Stable. Forms are Medication Reconciliation Form, Thank You Letter, Antibiotic Education, Prescription Opioid Use. Follow up: Private Physician; When: Upon discharge from the Emergency Department; Reason: Recheck today's complaints, Continuance of care, Re-evaluation by your physician. Problem is new. Symptoms have improved. tw4
[2020-09-22 01:08] VITALS: TEMP 97.5
[2020-09-22 01:10] VITALS: O2SAT 98
[2020-09-22 01:12] VITALS: BP 158/81
== END 2020-09-20 08:30 | disposition home or self-care (01) ==
LOC: ER 04:00
DX: E11.649 Type 2 diabetes mellitus with hypoglycemia without coma (principal); Z79.4 Long term (current) use of insulin; I10 Essential (primary) hypertension; E78.5 Hyperlipidemia, unspecified
CPT/HCPCS: 85025; 80048; 36415; 80320; 83735; 85610; 82947 ×6; 80076; 85730; 83690; 96374; 99284; J7799

== ENCOUNTER 2021-03-11 12:56 | Emergency (ER) | payer BC ==
--- OUTSIDE RECORDS SUMMARY | 2021-03-11 12:59 | XMS REPORT | Continuity of Care Document ---
:1960 Author Organization [facility] t Address [address] [place] [address] Care Team Providers Name Role Phone Lab, Fam Pob I Attending Clinician Unavailable Doctor Unassigned, Name Attending Clinician Unavailable Problems This patient has no known problems. Allergies, Adverse Reactions, Alerts This patient has no known allergies or adverse reactions. Medications This patient has no known medications. Procedures This patient has no known procedures. Encounters Start End Encounter Admission Attending Care Care Encounter Source Date/Time Date/Time Type Type Clinicians Facility Department ID 2020-10-25 2020-10-25 Laboratory Lab, [facility] [id number] 10:10:36 10:30:36 Only Fam Pob I Health [id number] [place] [id number] [place] [id number] [address] 2020-10-25 2020-10-25 Letter Doctor VERO [id number] 00:00:00 00:00:00 (Out) Unassigned, JERALD [id number] [place] [facility] [phone] [id number] Results This patient has no known results.
[2021-03-11] MEDS ORDERED: NA CHLORIDE 0.9% 1,000 ML ONE (14:17)
[2021-03-11] MEDS ORDERED: ONDANSETRON 4 MG/2 ML VIAL ONE (14:17)
[2021-03-11] MEDS ORDERED: MORPHINE 4 MG/ML SYR ONE (14:17)
[2021-03-11 14:21] LABS: Absolute Lymphocytes (CBC) 0.5 K/uL (0.7-4.9); Basophils % 0.3 % (0-1.3); Hematocrit 33.6 % (36.0-45.0); Lymphocytes % 6.3 % (15.3-44.8); MPV 9.4 fL (7.6-11.3); RBC Red Blood Cell Count 3.83 M/uL (3.86-4.86)
[2021-03-11 14:33] LABS: Urine Blood 1+ (Negative); Urine Glucose Trace (Negative); Urine Protein 3+ (Negative); Urine Specific Gravity 1.015 (1.005-1.030)
[2021-03-11 14:40] LABS: Albumin 3.1 g/dL (3.4-5.0); Bilirubin Direct 0.7 mg/dL (0-0.2); Bilirubin Total 1.5 mg/dL (0.2-1.0); Potassium 3.1 mmol/L (3.5-5.1); Protein, Total 6.6 g/dL (6.4-8.2)
[2021-03-11 15:07] LABS: Blood Morphology Comment NOT SEEN (NOT SEEN); Platelet Estimate ADEQ; White Blood Cell Scan OK (OK)
--- NOTE | 2021-03-11 15:23 | RAD REPORT ---
EXAM DESCRIPTION: CT - Abdomen Pelvis W Contrast - 03/11/2021 3:07 pm CLINICAL HISTORY: Abdominal pain/dysuria COMPARISON: none. TECHNIQUE: Computed axial tomography of the abdomen pelvis was obtained. 100 cc Isovue-300 was admin istered intravenously. Oral contrast was not requested which limits evaluation of bowel and appendix. All CT scans are performed using dose optimization technique as appropriate and may include automated exposure control or mA/KV adjustment according to patient size. FINDINGS: The liver, pancreas, adrenals and left kidney appear unremarkable Splenic granulomata. Enhancement of the right renal pelvis and wall of the right ureter. Stranding within the adjacent fat . There is no evidence of diverticulitis. IMPRESSION: Enhancement of the wall of the right renal pelvis involve the right ureter probably infe ction/inflammation
--- NOTE | 2021-03-11 15:47 | EDPHYS ---
Physician Documentation [facility] Name: Joanna Baxter Age: 60 yrs Sex: Female : 1960 Arrival Date: 03/11/2021 Time: 12:59 Bed 23 Private MD: ED Physician Andrew Ngo HPI: 03/11 15:11 This 60 yrs old Female presents to ER via Ambulatory with complaints of pm1 Urinary Problem. 15:11 The patient presents with urinary symptoms, burning with urination for 4 days. Onset: pm1 The symptoms/episode began/occurred nausea and flank pain for 2 days. 15:11 Modifying factors: The symptoms are alleviated by nothing, the symptoms are aggravated pm1 by urinating. Associated signs and symptoms: Pertinent negatives: fever, vaginal bleeding, vaginal discharge. Severity of symptoms: in the emergency department the symptoms. The patient has experienced similar episodes in the past, a few times. The patient has not recently seen a physician. Historical: - Allergies: 13:37 No Known Allergies; aa5 - PMHx: 13:37 Diabetes - IDDM; Hyperlipidemia; Hypertension; aa5 - PSHx: 13:37 ; carpel tunnel release; aa5 - Immunization history:: Adult Immunizations up to date. - Social history:: Smoking status: Patient denies any tobacco usage or history of. ROS: 15:11 Positive for pelvic pain, flank pain, burning with urination. pm1 15:11 Constitutional: Negative for fever, chills, and weight loss. 15:11 Cardiovascular: Negative for chest pain, palpitations, and edema, Respiratory: Negative for shortness of breath, cough, wheezing, and pleuritic chest pain, Abdomen/GI: Negative for abdominal pain, nausea, vomiting, diarrhea, and constipation, MS/Extremity: Negative for injury and deformity, Skin: Negative for injury, rash, and discoloration. 15:11 Neuro: Negative for headache, weakness, numbness, tingling, and seizure. 15:11 Abdomen/GI: Positive for abdominal pain, nausea, of the suprapubic area, Negative for vomiting, diarrhea, constipation. 15:11 Back: Positive for flank pain. Exam: 15:11 Constitutional: This is a well developed, well nourished patient who is awake, alert, pm1 and in no acute distress. Head/Face: Normocephalic, atraumatic. 15:11 Skin: Warm, dry with normal turgor. Normal color with no rashes, no lesions, and no evidence of cellulitis. MS/ Extremity: Pulses equal, no cyanosis. Neurovascular intact. Full, normal range of motion. 15:11 Eyes: Exam is negative for acute changes, Extraocular movements: intact throughout, Conjunctiva: normal, Lids and lashes: appear normal. 15:11 Cardiovascular: Exam negative for acute changes, Rate: normal, Rhythm: regular, Pulses: no pulse deficits are appreciated, Edema: is not appreciated. 15:11 Respiratory: Exam negative for acute changes, respiratory distress, shortness of breath, Breath sounds: are clear throughout. 15:11 Abdomen/GI: Inspection: abdomen appears normal, Palpation: soft, in all quadrants, mild abdominal tenderness, in the suprapubic area. 15:11 Back: Exam negative for acute changes, CVA tenderness, painful ROM, vertebral tenderness. 15:11 Neuro: Exam negative for acute changes, Orientation: is normal, Mentation: is normal, Motor: moves all fours, strength is 5/5 in all extremities. Vital Signs: 13:35 BP 148 / 84; Pulse 84; Resp 16; Temp 99(TE); Pulse Ox 100% on R/A; Weight 74.84 kg; aa5 Height 5 ft. 9 in. (175.26 cm); Pain 10/10; 14:52 BP 140 / 70; Pulse 85; Resp 16; Pulse Ox 94% on R/A; zb 13:35 Body Mass Index 24.37 (74.84 kg, 175.26 cm) aa5 MDM: 13:41 Patient medically screened. mireya 15:21 Data reviewed: vital signs. pm1 15:45 Counseling: I had a detailed discussion with the patient and/or guardian regarding: the pm1 historical points, exam findings, and any diagnostic results supporting the discharge/admit diagnosis, lab results, radiology results, the need for outpatient follow up, to return to the emergency department if symptoms worsen or persist or if there are any questions or concerns that arise at home. 03/11 13:50 Order name: Urine Microscopic Only; Complete Time: 15:51 pm1 03/11 14:17 Order name: Basic Metabolic Panel; Complete Time: 15:00 EDMS 03/11 13:50 Order name: CT Abd/Pelvis - IV Contrast Only; Complete Time: 15:39 pm1 03/11 14:17 Order name: Liver (Hepatic) Function; Complete Time: 15:00 EDMS 03/11 14:17 Order name: Lipase; Complete Time: 15:00 EDMS 03/11 14:17 Order name: CBC with Automated Diff; Complete Time: 15:09 EDMS 03/11 14:33 Order name: Urine Dipstick-Ancillary; Complete Time: 15:00 EDMS 03/11 15:07 Order name: CBC Smear Scan; Complete Time: 15:09 EDMS 03/11 15:49 Order name: Urine Culture EDMS 03/11 13:50 Order name: IV Saline Lock; Complete Time: 14:14 pm1 03/11 13:50 Order name: Labs collected and sent; Complete Time: 14:14 pm1 03/11 13:50 Order name: Urine Dipstick-Ancillary (obtain specimen); Complete Time: 15:03 pm1 Administered Medications: 14:00 Drug: Zofran (Ondansetron) 4 mg Route: IVP; Site: right antecubital; zb 15:03 Follow up: Response: No adverse reaction; Marked relief of symptoms zb 14:13 Drug: morphine 4 mg {Note: RASS 0.} Route: IVP; Site: right antecubital; zb 15:03 Follow up: Response: No adverse reaction; Marked relief of symptoms; Pain is decreased; zb RASS: Alert and Calm (0) 14:14 Drug: NS 0.9% 1000 ml Route: IV; Rate: 1000 ml; Site: right antecubital; zb 15:56 Drug: Rocephin (cefTRIAXone) 1 grams Route: IV; Rate: calculated rate; Site: right zb antecubital; 16:00 Follow up: Response: No adverse reaction; IV Status: Completed infusion; IV Intake: 10mlzb 16:09 Drug: LevaQUIN (levofloxacin) 750 mg Route: PO; hb 17:00 Follow up: Response: No adverse reaction zb Disposition: 03/11/21 15:47 Discharged to Home. Impression: Urinary tract infection, site not specified - right sided pyelonephritis. - Condition is Stable. - Discharge Instructions: Pyelonephritis, Adult. - Prescriptions for Levaquin 750 mg Oral Tablet - take 1 tablet by ORAL route once daily for 5 days; 5 tablet. Zofran ODT 4 mg Oral tablet,disintegrating - place 1 tablet by TRANSLINGUAL route every 8 hours As needed; 15 tablet. - Medication Reconciliation Form, Thank You Letter, Antibiotic Education, Prescription Opioid Use form. - Follow up: Emergency Department; When: As needed; Reason: Worsening of condition. Follow up: Private Physician; When: 2 - 3 days; Reason: Recheck today's complaints, Continuance of care, Re-evaluation by your physician. - Problem is new. - Symptoms have improved. Addendum: 03/13/2021 07:57 Co-signature as Attending Physician, Anderw Ngo MD I agree with the assessment and c carpenter plan of care. Signatures: Dispatcher [employer] EDGA Andrew Ngo MD MD cha Calderon, Audri, RN RN aa5 Boone Maria, CIVIL ENGINEERING PROFESSOR CIVIL ENGINEERING PROFESSOR pm1 Gabby Boyd, RN RN Karin Rose RN RN zb Corrections: (The following items were deleted from the chart) 03/11 14:55 14:51 BASIC METABOLIC PANEL+C.LAB.BRZ ordered. EDGA EDMS 14:55 14:51 CBC+H.LAB.BRZ ordered. EDGA EDMS 14:55 14:51 HEPATIC FUNCTION+C.LAB.BRZ ordered. EDGA EDMS 14:55 14:51 LIPASE+C.LAB.BRZ ordered. EDGA EDMS 16:10 15:47 03/11/2021 15:47 Discharged to Home. Impression: Urinary tract infection, site hb not specified - right sided pyelonephritis. Condition is Stable. Forms are Medication Reconciliation Form, Thank You Letter, Antibiotic Education, Prescription Opioid Use. Follow up: Emergency Department; When: As needed; Reason: Worsening of condition. Follow up: Private Physician; When: 2 - 3 days; Reason: Recheck today's complaints, Continuance of care, Re-evaluation by your physician. Problem is new. Symptoms have improved. pm1
--- NOTE | 2021-03-11 15:47 | ER ---
Nurse's Notes [facility] Name: Joanna Baxter Age: 60 yrs Sex: Female : 1960 Arrival Date: 03/11/2021 Time: 12:59 Bed 23 Private MD: Diagnosis: Urinary tract infection, site not specified-right sided pyelonephritis Presentation: 03/11 13:35 Chief complaint: Burning with urination x 4 days, suprapubic pain that radiates to low aa5 back and nausea x 2 days. Coronavirus screen: At this time, the client does not indicate any symptoms associated with coronavirus-19. Ebola Screen: No symptoms or risks identified at this time. Initial Sepsis Screen: Does the patient meet any 2 criteria? No. Patient's initial sepsis screen is negative. Does the patient have a suspected source of infection? No. Patient's initial sepsis screen is negative. Risk Assessment: Do you want to hurt yourself or someone else? Patient reports no desire to harm self or others. Onset of symptoms was March 07, 2021. 13:35 Method Of Arrival: Ambulatory aa5 13:35 Acuity: LUZ 3 aa5 Historical: - Allergies: 13:37 No Known Allergies; aa5 - PMHx: 13:37 Diabetes - IDDM; Hyperlipidemia; Hypertension; aa5 - PSHx: 13:37 ; carpel tunnel release; aa5 - Immunization history:: Adult Immunizations up to date. - Social history:: Smoking status: Patient denies any tobacco usage or history of. Screenin:16 Abuse screen: Denies threats or abuse. Denies injuries from another. Nutritional zb screening: No deficits noted. Tuberculosis screening: No symptoms or risk factors identified. Fall Risk None identified. Assessment: 14:00 General: Appears in no apparent distress. uncomfortable, Behavior is calm, cooperative, zb appropriate for age. Pain: Complains of pain in low back area and mid back area, abdomenal Pain does not radiate. Quality of pain is described as aching, Pain began 2-3 days ago. Is continuous. Neuro: Level of Consciousness is awake, alert, obeys commands, Oriented to person, place, time. Cardiovascular: Heart tones S1 S2. GI: Abdomen is round Bowel sounds present X 4 quads. Reports nausea. : Reports burning with urination, pain in suprapubic area flank(s), in lower back urgency, urinary frequency. : Urine is orange. Derm: Skin is normal. Musculoskeletal: Circulation, motion, and sensation intact. Range of motion: intact in all extremities. 14:59 Reassessment: Patient appears in no apparent distress at this time. Patient and/or zb family updated on plan of care and expected duration. Pain level reassessed. Patient is alert, oriented x 3, equal unlabored respirations, skin warm/dry/pink. pain had d/c Patient states feeling better. Vital Signs: 13:35 BP 148 / 84; Pulse 84; Resp 16; Temp 99(TE); Pulse Ox 100% on R/A; Weight 74.84 kg; aa5 Height 5 ft. 9 in. (175.26 cm); Pain 10/10; 14:52 BP 140 / 70; Pulse 85; Resp 16; Pulse Ox 94% on R/A; zb 13:35 Body Mass Index 24.37 (74.84 kg, 175.26 cm) aa5 ED Course: 12:59 Patient arrived in ED. rg4 13:37 Triage completed. aa5 13:37 Arm band placed on. aa5 13:39 Boone Maria NP is PHCP. pm1 13:39 Andrew Ngo MD is Attending Physician. pm1 13:53 Karin Badillo, CLYDE is Primary Nurse. zb 14:00 Inserted saline lock: 20 gauge in right antecubital area, using aseptic technique. zb Blood collected. 14:16 Patient has correct armband on for positive identification. Bed in low position. Call zb light in reach. Side rails up X 1. Pulse ox on. NIBP on. Door closed. Noise minimized. 15:07 CT Abd/Pelvis - IV Contrast Only In Process Unspecified. EDMS 16:00 No provider procedures requiring assistance completed. IV discontinued, intact, zb bleeding controlled, No redness/swelling at site. Pressure dressing applied. Administered Medications: 14:00 Drug: Zofran (Ondansetron) 4 mg Route: IVP; Site: right antecubital; zb 15:03 Follow up: Response: No adverse reaction; Marked relief of symptoms zb 14:13 Drug: morphine 4 mg {Note: RASS 0.} Route: IVP; Site: right antecubital; zb 15:03 Follow up: Response: No adverse reaction; Marked relief of symptoms; Pain is decreased; zb RASS: Alert and Calm (0) 14:14 Drug: NS 0.9% 1000 ml Route: IV; Rate: 1000 ml; Site: right antecubital; zb 15:56 Drug: Rocephin (cefTRIAXone) 1 grams Route: IV; Rate: calculated rate; Site: right zb antecubital; 16:00 Follow up: Response: No adverse reaction; IV Status: Completed infusion; IV Intake: 10mlzb 16:09 Drug: LevaQUIN (levofloxacin) 750 mg Route: PO; hb 17:00 Follow up: Response: No adverse reaction zb Intake: 16:00 IV: 10ml; Total: 10ml. zb Outcome: 15:47 Discharge ordered by . pm1 16:00 Discharged to home ambulatory, with family. zb 16:00 Condition: stable 16:00 Discharge instructions given to patient, family, Instructed on discharge instructions, follow up and referral plans. medication usage, Demonstrated understanding of instructions, follow-up care, medications, Prescriptions given X 2. 16:10 Patient left the ED. Signatures: Dispatcher [employer] EDMS Denise Castillo RN RN aa5 Boone Maria NP SPRAY PAINTER pm1 Gabby Boyd RN RN Zahra Bolton rg4 Karin Badillo RN RN zb Corrections: (The following items were deleted from the chart) 14:59 14:52 BP 140 / 70; Pulse 85bpm; Resp 16bpm; Pulse Ox 86% RA; zb zb 15:04 15:03 Response: No adverse reaction; Marked relief of symptoms zb zb
[2021-03-11 15:48] LABS: Urine Bacteria >50 /HPF (<20)
[2021-03-11] MEDS ORDERED: CEFTRIAXONE/SWI 1gm 1 GM/10 ML SYR ONE (16:02)
[2021-03-11 16:21] VITALS: TEMP 99
[2021-03-11 16:24] VITALS: BP 140/70; O2SAT 94
[2021-03-11] MEDS ORDERED: levoFLOXacin 750 MG TAB ONE (16:25)
== END 2021-03-11 16:10 | disposition home or self-care (01) ==
LOC: ER 12:56
DX: N39.0 Urinary tract infection, site not specified (principal); N12 Tubulo-interstitial nephritis, not specified as acute or chronic; I10 Essential (primary) hypertension
CPT/HCPCS: 87088; 85025; 87086; 80048; 36415; 80076; 83690; 74177; Q9967; J0696; J7030; J2405; 81003; 81015; 87077; 87186; 96374; 96375; 99284

== ENCOUNTER 2021-11-02 12:42 | Emergency (ER) | payer OTHER ==
--- OUTSIDE RECORDS SUMMARY | 2021-11-02 12:45 | XMS REPORT | Continuity of Care Document ---
:1960 Author Organization [facility] t Address [address] [place] [address] Care Team Providers Name Role Phone Lab, Fam Pob I Attending Clinician Unavailable Julia CHANGEOVER OPERATOR Attending Clinician Doctor Unassigned, Name Attending Clinician Unavailable Payers Payer Name Policy Type Policy Number Effective Date Expiration Date S ource Problems Condition Condition Condition Status Onset Resolution Last Treating Co mments Source Name Details Category Date Date Treatment Clinician Date Essential Essential Disease Active Uni vers hypertensi hypertensi it y of on, benign on, benign Te [facility] Uncontroll Uncontroll Disease Active Overview : [facility] 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 Retinopath Retinopath Disease Active U nivers y y ity [facility] Gastropare Gastropare Disease Active U nivers sis sis ity of [facility] Allergies, Adverse Reactions, Alerts Allergy Allergy Status Severity Reaction(s) Onset Inactive Treating Comm ents Source Name Type Date Date Clinician NO KNOWN Drug Active Univers [facility] Social History Social Habit Start Date Stop Date Quantity Comments Source [facility] Exposure to Not sure [facility] SARS-CoV-2 [place] [facility] (event) [facility] Tobacco use and 2017-09-01 2017-09-01 [facility] 00:00:00 00:00:00 [facility] Alcohol intake 2017-09-01 2017-09-01 Current drinker Unive rsity of 00:00:00 00:00:00 of alcohol [place] [facility] (finding) Branch Smoking Status Start Date Stop Date Source Former smoker 2017-09-01 00:00:00 2017-09-01 00:00:00 [facility]i of [facility] Medications Ordered Filled Start Stop Current Ordering Indication Dosage Frequency Signature Comments Components Source Medication Medication Date Date Medication? Clinician (SIG) Name Name sola 2016-10 Yes 10mg Take 10 mg Univers n (LIPITOR) 1-27 by mouth ity of 10 mg 18:00: at [place] tablet 52 bedtime. Medical Branch gabapentin 2016-10 Yes 600mg Take 600 Un srinath 600 mg 1-27 mg by ity of tablet 18:00: mouth [place] 52 daily. Medical Branch HYDROcodone 2016-10 Yes 1{tbl} Take 1 Un srinath -acetaminop 1-27 tablet by ity of hen 10-325 18:00: mouth [place] mg tablet 52 every 8 Medical (eight) Branch hours as needed for Pain (scale 1-3). TRAZODONE 2016-10 Yes 50mg Take 50 mg Un srinath HCL 1-27 by mouth ity of (TRAZODONE 18:00: at [place] ORAL) 52 bedtime. Medical Branch atorvastati 2016-10 Yes 10mg Take 10 mg Univers n (LIPITOR) 1-27 by mouth ity of 10 mg 18:00: at [place] tablet 52 bedtime. Medical Branch gabapentin 2016-10 Yes 600mg Take 600 Un srinath 600 mg 1-27 mg by ity of tablet 18:00: mouth [place] 52 daily. Medical Branch HYDROcodone 2016-10 Yes 1{tbl} Take 1 Un srinath -acetaminop 1-27 tablet by ity of hen 10-325 18:00: mouth [place] mg tablet 52 every 8 Medical (eight) Branch hours as needed for Pain (scale 1-3). TRAZODONE 2016-10 Yes 50mg Take 50 mg Un srinath HCL 1-27 by mouth ity of (TRAZODONE 18:00: at [place] ORAL) 52 bedtime. Medical Branch glucagon Yes Use now Univer s (GLUCAGON 3-26 prn for ity of EMERGENCY) 00:00: severe[place] 1 mg 00 emergency, Medical injection low blood Branc h sugar glucagon Yes Use now Univer s (GLUCAGON 3-26 prn for ity of EMERGENCY) 00:00: [place] 1 mg 00 emergency, Medical injection low blood Branc h sugar ondansetron Yes [id number] 4mg Take 1 Tab Univers (ZOFRAN-ODT 3-21 by mouth ity of ) 4 mg 00:00: every 8 [place] disintegrat 00 (eight) Medic al ing tablet hours as Branc h needed for Nausea and Vomiting (N/V). insulin Yes Use per Univers lispro 3-21 scale, up ity of (HUMALOG 00:00: to 20 [place] KWIKPEN) 00 units Medical 100 unit/mL daily Branch pen injector omeprazole Yes [id number] 20mg Take 1 Cap Univers (PRILOSEC) 3-21 by mouth ity o f 20 mg 00:00: daily. [place] capsule 00 Medical Branch metoprolol Yes [id number] 50mg Take 1 Tab Univers succinate 3-21 by mouth ity of XL (TOPROL 00:00: daily. [place] XL) 50 mg 00 Medical 24 hr Branch tablet lisinopril Yes [id number] 20mg Take 1 Tab Univers (PRINIVIL,Z 3-21 by mouth ity of ESTRIL) 20 00:00: daily. [place] mg tablet 00 Medical Branch chlorthalid Yes [id number] 25mg Take 1 Tab Univers one 3-21 by mouth ity of (HYGROTON) 00:00: daily. [place] 25 mg 00 Medical tablet Branch ondansetron Yes [id number] 4mg Take 1 Tab Univers (ZOFRAN-ODT 3-21 by mouth ity of ) 4 mg 00:00: every 8 [place] disintegrat 00 (eight) Medic al ing tablet hours as Branc h needed for Nausea and Vomiting (N/V). insulin Yes Use per Univers lispro 3-21 scale, up ity of (HUMALOG 00:00: to 20 [place] KWIKPEN) 00 units Medical 100 unit/mL daily Branch pen injector omeprazole Yes [id number] 20mg Take 1 Cap Univers (PRILOSEC) 3-21 by mouth ity o f 20 mg 00:00: daily. [place] capsule [facility] Branch metoprolol Yes [id number] 50mg Take 1 Tab Univers succinate 3-21 by mouth ity of XL (TOPROL 00:00: daily. [place] XL) 50 mg Medical 24 hr Branch tablet lisinopril Yes [id number] 20mg Take 1 Tab Univers (PRINIVIL,Z 3-21 by mouth ity of ESTRIL) 20 00:00: daily. [place] mg tablet [facility] Branch chlorthalid Yes [id number] 25mg Take 1 Tab Univers one 3-21 by mouth ity of (HYGROTON) 00:00: daily. [place] 25 mg Medical tablet Branch Procedures This patient has no known procedures. Encounters Start End Encounter Admission Attending Care Care Encounter Source Date/Time Date/Time Type Type Clinicians Facility Department ID 2020-10-25 2020-10-25 Laboratory Lab, [facility] Fam Pob I [facility] [id number]. [id number] Univers 10:10:36 10:30:36 Only Anene, [facility] [id number] ity of [place] [id number] Roly as Professio [phone] Mt dical [address] Office Building [facility] 2020-10-25 2020-10-25 Laboratory Lab, [facility] [id number] 10:10:36 10:30:36 Only Fam Pob I Health [id number] [place] [id number] Professio [id number] [place] [address] [address] 2020-10-25 2020-10-25 Outpatient R [facility] [id number] Univers 10:00:00 10:00:00 ity of [facility] 2020-10-25 2020-10-25 Letter Doctor PHAM [id number] Univers 00:00:00 00:00:00 (Out) Unassigned, JERALD [id number] ity of [place] [facility] [id number] Roly as [phone] [address] 2020-10-25 2020-10-25 Letter Doctor PHAM [id number] 00:00:00 00:00:00 (Out) Unassigned, JERALD [id number] [place] [facility] [id number] [id number] Results This patient has no known results.
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
[2021-11-02 15:35] VITALS: TEMP 97.9
[2021-11-02 15:37] VITALS: BP 135/79; O2SAT 96
== END 2021-11-02 15:15 | disposition home or self-care (01) ==
LOC: ER 12:42
DX: M79.10 Myalgia, unspecified site (principal); V49.50XA Passenger injured in collision with unspecified motor vehicles in traffic accident, initial encounter; E11.9 Type 2 diabetes mellitus without complications; I10 Essential (primary) hypertension
CPT/HCPCS: 70450; 72125; 72131; 99284

== ENCOUNTER 2022-05-02 10:31 | Emergency (ER) | payer BC ==
[2022-05-02] MEDS ORDERED: AMOX/K CLAV 875 MG TAB ONE ×2 (11:11→11:16)
[2022-05-02] MEDS ORDERED: HYDROCODONE/APAP 7.5/325 MG TAB ONE (11:12)
--- NOTE | 2022-05-02 11:46 | EDPHYS ---
Physician Documentation [facility] Name: Joanna Baxter Age: 61 yrs Sex: Female : 1960 Arrival Date: 05/02/2022 Time: 10:35 Bed 10 Private MD: LUDWIG Physician Andrew Ngo HPI: 05/02 11:00 This 61 yrs old Female presents to ER via Ambulatory with complaints of Toothache. cp 11:00 The patient presents with pain. The problem is located in the right upper and lower cp jaw. Onset: The symptoms/episode began/occurred over 1 week ago. Duration: The symptoms are continuous, and are steadily getting worse. Associated signs and symptoms: The patient has no apparent associated signs or symptoms. Severity of symptoms: in the emergency department the symptoms are unchanged, despite home interventions. Historical: - Allergies: 10:41 No Known Allergies; bm7 - Home Meds: 10:41 lisinopril Oral [Active]; Metoprolol Tartrate Oral [Active]; insulin [Active]; bm7 - PMHx: 10:41 diabetes mellitus; Hypertensive disorder; bm7 - Immunization history:: Adult Immunizations up to date. - Social history:: Smoking status: Patient/guardian denies using tobacco products. ROS: 11:05 Eyes: Negative for injury, pain, redness, and discharge. cp 11:05 Constitutional: Negative for body aches, chills, fever, poor PO intake. 11:05 ENT: Positive for dental pain, Negative for drainage from ear(s), ear pain, sore throat, difficulty swallowing, difficulty handling secretions. 11:05 Cardiovascular: Negative for chest pain, edema, palpitations. 11:05 Respiratory: Negative for cough, shortness of breath, wheezing. 11:05 Abdomen/GI: Negative for abdominal pain, nausea, vomiting, and diarrhea. 11:05 Neuro: Negative for altered mental status, headache, numbness, weakness. 11:05 All other systems are negative. Exam: 11:10 Head/Face: Normocephalic, atraumatic. cp 11:10 Constitutional: The patient appears in no acute distress, alert, awake, non-toxic, well developed, well nourished. 11:10 Eyes: Periorbital structures: appear normal, Conjunctiva: normal, no exudate, no injection, Sclera: no appreciated abnormality, Lids and lashes: appear normal, bilaterally. 11:10 ENT: External ear(s): are unremarkable, Ear canal(s): are normal, clear, TM's: dullness, bilaterally, Nose: is normal, Mouth: Lips: moist, Oral mucosa: pink and intact, moist, Posterior pharynx: Airway: no evidence of obstruction, patent, Tonsils: are normal in appearance, Uvula: midline, swelling, is not appreciated, erythema, is not appreciated, exudate, is not appreciated, Dental exam: abscess, is not appreciated, dental caries, that is moderate, diffusely, gum swelling, not appreciated, missing teeth, diffusely, pain, that is moderate, specifically in the upper right second bicuspid (#4) and lower right cuspid (#27), Voice: is normal. 11:10 Neck: ROM/movement: is normal, is supple, without pain, no range of motions limitations, no meningismus. 11:10 Chest/axilla: Inspection: normal. 11:10 Cardiovascular: Rate: normal, Rhythm: regular. 11:10 Respiratory: the patient does not display signs of respiratory distress, Respirations: normal, no use of accessory muscles, no retractions, labored breathing, is not present, Breath sounds: are clear throughout, no decreased breath sounds, no stridor, no wheezing. Vital Signs: 10:37 BP 144 / 70; Pulse 72; Resp 16; Temp 97.0(TE); Pulse Ox 100% on R/A; Weight 77.11 kg; bm7 Height 5 ft. 7 in. (170.18 cm); Pain 10/10; 10:51 BP 124 / 62; Pulse 68; Resp 16; Pulse Ox 100% on R/A; bm7 10:37 Body Mass Index 26.63 (77.11 kg, 170.18 cm) bm7 MDM: 10:46 Patient medically screened. mireya 11:00 Differential diagnosis: dental caries, gingivitis, dental abscess, pericoronitis, cp aphthous ulcers. 11:45 Data reviewed: vital signs, nurses notes. cp 11:45 Counseling: I had a detailed discussion with the patient and/or guardian regarding: the cp historical points, exam findings, and any diagnostic results supporting the discharge/admit diagnosis, the need for outpatient follow up, for definitive care, a dentist, to return to the emergency department if symptoms worsen or persist or if there are any questions or concerns that arise at home. Response to treatment: the patient's symptoms have mildly improved after treatment, and as a result, I will discharge patient. Administered Medications: 11:09 Drug: Hydrocodone-Acetaminophen (7.5 mg-325 mg) 1 tabs Route: PO; iw 11:10 Drug: Augmentin (Amoxicillin-Clavulanate) 875 mg Route: PO; iw Disposition Summary: 05/02/22 11:45 Discharge Ordered Location: Home cp Problem: new cp Symptoms: have improved cp Condition: Stable cp Diagnosis - Disorder of teeth and supporting structures, unspecified cp Followup: cp - With: Jay Suh DDS - When: 2 - 3 days - Reason: Recheck today's complaints Discharge Instructions: - Discharge Summary Sheet cp - Dental Pain cp Forms: - Medication Reconciliation Form cp - Thank You Letter cp - Antibiotic Education cp - Prescription Opioid Use cp Prescriptions: - Amoxicillin 875 mg Oral Tablet - take 1 tablet by ORAL route every 12 hours for 10 days; 20 tablet; Refills: 0, cp Product Selection Permitted - Diclofenac Sodium 75 mg Oral Tablet Sustained Release - take 1 tablet by ORAL route 2 times per day; 30 tablet; Refills: 0, Product cp Selection Permitted Signatures: Andrew Ngo MD MD cha Williams, Irene, RN RN Andrew Oshea PA PA cp McCarthy, Brittany, RN RN bm7 Corrections: (The following items were deleted from the chart) 05/03 11:25 09:21 This 61 yrs old Female presents to ER via Ambulatory with complaints of cp Toothache. cp 05/02 09:21 This 61 yrs old Female presents to ER via Ambulatory with complaints of cp Toothache. cp 05/03 11:05/02 09:21 The patient presents with pain, cp cp 05/03 11:05/02 09:21 The problem is located in the right upper and lower jaw, cp cp 05/03 11:05/02 09:21 Onset: The symptoms/episode began/occurred over 1 week ago, cp cp 05/03 11:05/02 09:21 Duration: The symptoms are continuous, and are steadily getting worse, cp cp 05/03 11:05/02 09:21 Associated signs and symptoms: The patient has no apparent associated signs cp or symptoms, cp 05/03 11:05/02 09:21 Severity of symptoms: in the emergency department the symptoms are cp unchanged, despite home interventions, cp 05/03 11:05/02 09:25 Constitutional: Negative for body aches, chills, fever, poor PO intake, cp cp 05/03 11:05/02 09:25 Cardiovascular: Negative for chest pain, edema, palpitations, cp cp 05/03 11:05/02 09:25 Respiratory: Negative for cough, shortness of breath, wheezing, cp cp 05/03 11:05/02 09:25 Abdomen/GI: Negative for abdominal pain, nausea, vomiting, and diarrhea, cp cp 05/03 11:05/02 09:25 Eyes: Negative for injury, pain, redness, and discharge, cp cp 05/03 11:05/02 09:25 ENT: Positive for dental pain, Negative for drainage from ear(s), ear pain, cp sore throat, difficulty swallowing, difficulty handling secretions, cp 05/03 11:05/02 09:25 Neuro: Negative for altered mental status, headache, numbness, weakness, cp cp 05/03 11:05/02 09:25 All other systems are negative, cp cp 05/03 11:05/02 09:30 Constitutional: The patient appears in no acute distress, alert, awake, cp non-toxic, well developed, well nourished, cp 05/03 11:05/02 09:30 Head/Face: Normocephalic, atraumatic. cp cp 05/03 11:05/02 09:30 Eyes: Periorbital structures: appear normal, Conjunctiva: normal, no cp exudate, no injection, Sclera: no appreciated abnormality, Lids and lashes: appear normal, bilaterally, cp 05/03 11:05/02 09:30 ENT: External ear(s): are unremarkable, Ear canal(s): are normal, clear, cp TM's: dullness, bilaterally, Nose: is normal, Mouth: Lips: moist, Oral mucosa: pink and intact, moist, Posterior pharynx: Airway: no evidence of obstruction, patent, Tonsils: are normal in appearance, Uvula: midline, swelling, is not appreciated, erythema, is not appreciated, exudate, is not appreciated, Dental exam: abscess, is not appreciated, dental caries, that is moderate, diffusely, gum swelling, not appreciated, missing teeth, diffusely, pain, that is moderate, specifically in the upper right second bicuspid (#4) and lower right cuspid (#27), Voice: is normal, cp 05/03 11:05/02 09:30 Neck: ROM/movement: is normal, is supple, without pain, no range of motions cp limitations, no meningismus, cp 05/03 11:05/02 09:30 Chest/axilla: Inspection: normal, cp 05/03 11:05/02 09:30 Cardiovascular: Rate: normal, Rhythm: regular, cp 05/03 11:05/02 09:30 Respiratory: the patient does not display signs of respiratory distress, cp Respirations: normal, no use of accessory muscles, no retractions, labored breathing, is not present, Breath sounds: are clear throughout, no decreased breath sounds, no stridor, no wheezing, cp
--- NOTE | 2022-05-02 11:46 | ER ---
Nurse's Notes [facility] Name: Joanna Baxter Age: 61 yrs Sex: Female : 1960 Arrival Date: 05/02/2022 Time: 10:35 Bed 10 Private MD: Diagnosis: Disorder of teeth and supporting structures, unspecified Presentation: 05/02 10:38 Chief complaint: Patient states: I have a really bad tooth ache that has been bothering 7 me for about a week. Coronavirus screen: Vaccine status: Patient reports receiving the 2nd dose of the covid vaccine. Ebola Screen: No symptoms or risks identified at this time. Initial Sepsis Screen: Does the patient meet any 2 criteria? No. Patient's initial sepsis screen is negative. Does the patient have a suspected source of infection? No. Patient's initial sepsis screen is negative. Risk Assessment: Do you want to hurt yourself or someone else? Patient reports no desire to harm self or others. Onset of symptoms was April 18, 2022. Care prior to arrival: Medication(s) given: Motrin, \T\ 0800. 10:38 Method Of Arrival: Ambulatory banner 10:38 Acuity: LUZ 4 bm7 Triage Assessment: 10:41 General: Appears in no apparent distress. uncomfortable, well groomed, well developed, banner Behavior is calm, cooperative, appropriate for age. Pain: Complains of pain in mouth Pain currently is 10 out of 10 on a pain scale. Quality of pain is described as throbbing, Is continuous. EENT: Lid(s) vesicular lesion to the right upper lip. Oral mucosa is moist. Throat is clear Reports pain since all teeth. Neuro: No deficits noted. Cardiovascular: No deficits noted. Respiratory: No deficits noted. GI: No deficits noted. No signs and/or symptoms were reported involving the gastrointestinal system. : No deficits noted. No signs and/or symptoms were reported regarding the genitourinary system. Derm: No deficits noted. No signs and/or symptoms reported regarding the dermatologic system. Musculoskeletal: No deficits noted. No signs and/or symptoms reported regarding the musculoskeletal system. Historical: - Allergies: 10:41 No Known Allergies; bm7 - Home Meds: 10:41 lisinopril Oral [Active]; Metoprolol Tartrate Oral [Active]; insulin [Active]; bm7 - PMHx: 10:41 diabetes mellitus; Hypertensive disorder; bm7 - Immunization history:: Adult Immunizations up to date. - Social history:: Smoking status: Patient/guardian denies using tobacco products. Screenin:55 Abuse screen: Denies threats or abuse. Denies injuries from another. Nutritional iw screening: No deficits noted. Tuberculosis screening: No symptoms or risk factors identified. Fall Risk None identified. Assessment: 11:55 General: Appears in no apparent distress. Behavior is calm, cooperative. Neuro: Level iw of Consciousness is awake, alert, obeys commands, Oriented to person, place, time, situation. Respiratory: Respiratory effort is even, unlabored, Respiratory pattern is regular. Vital Signs: 10:37 BP 144 / 70; Pulse 72; Resp 16; Temp 97.0(TE); Pulse Ox 100% on R/A; Weight 77.11 kg; bm7 Height 5 ft. 7 in. (170.18 cm); Pain 10/10; 10:51 BP 124 / 62; Pulse 68; Resp 16; Pulse Ox 100% on R/A; bm7 10:37 Body Mass Index 26.63 (77.11 kg, 170.18 cm) bm7 ED Course: 10:35 Patient arrived in ED. as 10:40 Triage completed. bm7 10:41 Arm band placed on left wrist. bm7 10:45 Andrew Oshea PA is PHCP. cp 10:45 Andrew Ngo MD is Attending Physician. cp 10:50 Ingrid Hutchins, RN is Primary Nurse. bm7 11:45 Jay Suh DDS is Referral Physician. cp 11:56 Patient has correct armband on for positive identification. iw 11:56 No provider procedures requiring assistance completed. Patient did not have IV access iw during this emergency room visit. Administered Medications: 11:09 Drug: Hydrocodone-Acetaminophen (7.5 mg-325 mg) 1 tabs Route: PO; iw 11:10 Drug: Augmentin (Amoxicillin-Clavulanate) 875 mg Route: PO; iw Medication: 11:56 VIS not applicable for this client. iw Outcome: 11:45 Discharge ordered by . cp 11:55 Discharged to home ambulatory. iw 11:55 Condition: good 11:55 Discharge instructions given to patient, Instructed on discharge instructions, follow up and referral plans. Demonstrated understanding of instructions, follow-up care, medications, Prescriptions given X 2. 11:56 Patient left the ED. iw Signatures: Violet Hendrickson Irene, RN RN iw Andrew Oshea PA PA cp McCarthy, Brittany, RN RN bm7
[2022-05-02 12:08] VITALS: TEMP 97; O2SAT 100
[2022-05-02 12:10] VITALS: BP 124/62
== END 2022-05-02 11:56 | disposition home or self-care (01) ==
LOC: ER 10:31
DX: K08.89 Other specified disorders of teeth and supporting structures (principal); E11.9 Type 2 diabetes mellitus without complications; I10 Essential (primary) hypertension; Z79.4 Long term (current) use of insulin
CPT/HCPCS: 99283

== ENCOUNTER 2023-04-18 18:36 | Observation (INO) | payer BC ==
--- OUTSIDE RECORDS SUMMARY | 2023-04-18 18:39 | XMS REPORT | Continuity of Care Document ---
:1960 Author Organization [facility] t Address [address] [place] [address] Care Team Providers Name Role Phone [email or web address]_Jerri Attending Clinician Unavailable TORY_LUCIO_Jerri Admitting Clinician Unavailable Payers Payer Name Policy Type Policy Number Effective Date Expiration Date [facility] [id number] 2017 (PPO) 00:00:00 [place] [id number] 2021 (PPO) 00:00:00 Problems This patient has no known problems. Allergies, Adverse Reactions, Alerts This patient has no known allergies or adverse reactions. Medications This patient has no known medications. Procedures This patient has no known procedures. Encounters Start End Encounter Admission Attending Care Care Encounter Source Date/Time Date/Time Type Type Clinicians Facility Department ID 2022-01-24 2022-01-24 Outpatient [id number] PRIV [id number] [facility] 11:45:00 11:45:00 _Jerri [id number] Medica l Results This patient has no known results.
[2023-04-18 19:18] LABS: Absolute Lymphocytes (CBC) 1.5 K/uL (0.7-4.9); Hematocrit 36.8 % (36.0-45.0); Lymphocytes % 16.4 % (15.3-44.8); MCV 90.4 fL (80-100); MPV 8.4 fL (7.6-11.3); RBC Red Blood Cell Count 4.07 M/uL (3.86-4.86)
[2023-04-18] MEDS ORDERED: NA CHLORIDE 0.9% 1,000 ML ONE (19:23)
--- NOTE | 2023-04-18 19:26 | RAD REPORT ---
EXAM DESCRIPTION: RAD - Chest Single View - 04/18/2023 7:19 pm CLINICAL HISTORY: hypoglycemia COMPARISON: Chest Pa And Lat (2 Views) dated 08/15/2021; Chest Pa And Lat (2 Views) dated 11/07/2020; CHEST PA AND LAT 2 VIEW dated 12/16/2014; CHEST SINGLE VIEW dated 02/25/2013 FINDINGS: Lines: None. Lungs: Increased basilar airspace disease. Pleural: No significant pleural effusions or pneumothorax. Cardiac: The heart size is within normal limits. Mediastinum: Within normal limits. Bones: No acute fractures. Other: None IMPRESSION: Increased ill-defined basilar airspace disease that could reflect pneumonia or pneumonit is.
[2023-04-18 19:41] LABS: Albumin 3.9 g/dL (3.4-5.0); Bilirubin Total 0.5 mg/dL (0.2-1.0); Magnesium 1.9 mg/dL (1.6-2.4); Potassium 2.7 mEq/L (3.5-5.1); Protein, Total 7.3 g/dL (6.4-8.2); Troponin High Sensitivity 3.5 pg/mL (<58.9)
[2023-04-18] MEDS ORDERED: D10W 250 ML IV ONE (19:55)
[2023-04-18] MEDS ORDERED: POTASSIUM CL SA 10 MEQ TAB PO ONE ×2 (20:41→20:46)
[2023-04-18] MEDS ORDERED: Magnesium Sulfate 2gm IVPB 2 G/50 ML BAG IV ONE (20:42)
[2023-04-18] MEDS ORDERED: NA CHLORIDE 0.9% 500 ML ONE (20:42)
[2023-04-18] MEDS ORDERED: KCL 20 MEQ/100 mL IVPB 200 ML IV ONE (20:42)
--- NOTE | 2023-04-18 20:43 | EDPHYS ---
Physician Documentation [facility] Name: Joanna Baxter Age: 62 yrs Sex: Female : 1960 Arrival Date: 04/18/2023 Time: 18:36 Bed 7 Private MD: ED Physician Julio Cesar Soares HPI: 04/18 19:32 This 62 yrs old Female presents to ER via EMS with complaints of Low Blood Sugar. rt 19:32 Patient presents to the ED with hypoglycemia. Patient reportedly takes long-acting rt insulin, took it this morning but missed her lunch. Cannot remember the events surrounding the EMS call but EMS states that her blood sugar was about 16, improving to 185 and decreasing to about 100 following dextrose administration. This resolved the altered mental status. Patient states that she been feeling weak for several weeks now. Denies any specific pain. She does report a tingling sensation in her chest which she does state is new but denies any overt chest pain. Denies other acute complaints at this time. Symptoms are moderate severity, no other aggravating or alleviating factors.. Historical: - Allergies: 19:10 No Known Allergies; ph - PMHx: 19:10 diabetes mellitus; Hypertensive disorder; ph - Immunization history:: Adult Immunizations unknown. - Social history:: Smoking status: Patient denies any tobacco usage or history of. - Family history:: not pertinent. ROS: 19:32 Constitutional: Negative for fever, chills, and weight loss, Cardiovascular: Negative rt for chest pain, palpitations, and edema, Respiratory: Negative for shortness of breath, cough, wheezing, and pleuritic chest pain, Abdomen/GI: Negative for abdominal pain, nausea, vomiting, diarrhea, and constipation, MS/Extremity: Negative for injury and deformity, Skin: Negative for injury, rash, and discoloration, Psych: Negative for depression, anxiety, suicide ideation, homicidal ideation, and hallucinations. Exam: 19:32 Constitutional: This is a well developed, well nourished patient who is awake, alert, rt and in no acute distress. Head/Face: Normocephalic, atraumatic. Chest/axilla: Normal chest wall appearance and motion. Nontender with no deformity. No lesions are appreciated. Cardiovascular: Regular rate and rhythm with a normal S1 and S2. No gallops, murmurs, or rubs. Normal PMI, no JVD. No pulse deficits. Respiratory: Lungs have equal breath sounds bilaterally, clear to auscultation and percussion. No rales, rhonchi or wheezes noted. No increased work of breathing, no retractions or nasal flaring. Abdomen/GI: Soft, non-tender, with normal bowel sounds. No distension or tympany. No guarding or rebound. No evidence of tenderness throughout. Skin: Warm, dry with normal turgor. Normal color with no rashes, no lesions, and no evidence of cellulitis. MS/ Extremity: Pulses equal, no cyanosis. Neurovascular intact. Full, normal range of motion. Neuro: Awake and alert, GCS 15, oriented to person, place, time, and situation. Cranial nerves II-XII grossly intact. Motor strength 5/5 in all extremities. Sensory grossly intact. Cerebellar exam normal. Normal gait. Psych: Awake, alert, with orientation to person, place and time. Behavior, mood, and affect are within normal limits. 19:32 ENT: Dry mucous membranes, OP otherwise benign. 19:32 ECG was reviewed by the Attending Physician. Vital Signs: 18:38 BP 142 / 62; Pulse 82; Resp 18; Temp 97.5; Pulse Ox 95% on R/A; Weight 77.11 kg; Height ph 5 ft. 8 in. ; 19:42 BP 130 / 67; Pulse 87; Resp 12; Pulse Ox 99% on R/A; jb4 20:45 BP 127 / 72; Pulse 90; Resp 12; Pulse Ox 100% on R/A; jb4 18:38 Body Mass Index 25.85 (77.11 kg, 172.72 cm) ph MDM: 18:39 Patient medically screened. rt 20:43 Differential diagnosis: Hypoglycemia due to inadequate oral intake, insulin overdose, rt sepsis, electrolyte disturbance, dysrhythmia. Data reviewed: vital signs, nurses notes. Consideration of Admission/Observation Patient was admitted/placed on observation. Management of patient was discussed with the following: Hospitalist: Agrees to admit. I considered the following discharge prescriptions or medication management in the emergency department Medications were administered in the Emergency Department. See MAR. Independent interpretation of the following test(s) in the Emergency Department X-Ray: My interpretation is No consolidation seen on interpretation of the x-ray images. Test considered but Not performed: CT: No focal neurodeficits, altered mental status improved with treatment of hypoglycemia, CT scan of the head is not indicated. Care significantly affected by the following chronic conditions: Diabetes. Counseling: I had a detailed discussion with the patient and/or guardian regarding: the historical points, exam findings, and any diagnostic results supporting the discharge/admit diagnosis, lab results, radiology results, the need for further work-up and treatment in the hospital. 04/18 18:50 Order name: CBC with Diff; Complete Time: 20:20 rt 04/18 18:50 Order name: CMP; Complete Time: 20:20 rt 04/18 18:50 Order name: UAM rt 04/18 18:50 Order name: Troponin High Sensitivity; Complete Time: 20:20 rt 04/18 18:50 Order name: Magnesium; Complete Time: 20:20 rt 04/18 20:53 Order name: Urinalysis w/ reflexes EDMS 04/18 20:53 Order name: Basic Metabolic Panel EDMS 04/18 20:53 Order name: Basic Metabolic Panel EDMS 04/18 20:53 Order name: CBC with Automated Diff EDMS 04/18 20:53 Order name: CBC with Automated Diff EDMS 04/18 20:53 Order name: Comprehensive Metabolic Panel EDMS 04/18 20:53 Order name: Comprehensive Metabolic Panel EDMS 04/18 20:53 Order name: Magnesium EDMS 04/18 20:53 Order name: Magnesium EDMS 04/18 20:53 Order name: Phosphorus EDMS 04/18 20:53 Order name: Phosphorus EDMS 14 21:34 Order name: Glucose, Ancillary Testing EDMS 04/18 18:50 Order name: Chest Single View XRAY; Complete Time: 19:27 rt 04/18 18:50 Order name: EKG; Complete Time: 18:51 rt 04/18 20:53 Order name: Regular EDMS 04/18 18:50 Order name: EKG - Nurse/Tech; Complete Time: 19:25 rt EC:32 Rate is 87 beats/min. Rhythm is regular, Normal Sinus Rhythm with Unifocal PVCs. QRS rt [place] is Normal. VT interval is normal. QRS interval is normal. QT interval is normal. No Q waves. Clinical impression: NSR w/ Non-specific ST/T Changes. Administered Medications: 19:16 Drug: NS 0.9% IV 1000 ml Route: IV; Rate: 1 bolus; Site: right antecubital; mb9 20:30 Follow up: IV Status: Completed infusion; IV Intake: 1000ml jb4 19:55 Drug: D10 in Water IVP 250 ml Route: IVP; Site: right antecubital; jb4 21:53 Follow up: Response: No adverse reaction; Marked relief of symptoms jb4 20:50 Drug: Potassium Chloride IV 40 mEq {Note: administered over 4 hours. Provider made jb4 aware and agreed to rate change..} Route: IV; Rate: calculated rate; Site: right antecubital; 21:52 Follow up: IV Status: Infusion continued upon admission jb4 20:52 Drug: Magnesium Sulfate IVPB 2 grams {Note: Provider okayed rate change.} Route: IVPB; jb4 Infused Over: 60 mins; Site: right antecubital; 21:52 Follow up: Response: No adverse reaction; IV Status: Infusion continued upon admission; jb4 IV Intake: 50ml 20:52 Drug: Potassium Chloride PO 40 mEq Route: PO; jb4 21:53 Follow up: Response: No adverse reaction jb4 20:52 Drug: NS 0.9% IV 500 ml Route: IV; Rate: 125 ml/hr; Site: right antecubital; jb4 21:52 Follow up: IV Status: Infusion continued upon admission jb4 Disposition Summary: 04/18/23 20:43 Hospitalization Ordered Hospitalization Status: Observation rt Provider: Jules Cardona rt [facility] rt Condition: Stable rt Problem: new rt Symptoms: have improved rt Bed/Room Type: Standard rt Room Assignment: 409(04/18/23 20:58) mw Diagnosis - Drug-induced hypoglycemia without coma rt - Hypokalemia rt Forms: - Medication Reconciliation Form rt - SBAR form rt Signatures: Dispatcher [employer] EDKelsey Abraham RN RN Katharina Olmedo RN RN ph Bryson, James, RN RN jb4 Isis Heredia RN RN [id number] Julio Cesar Soares MD MD rt Corrections: (The following items were deleted from the chart) 20:58 20:43 rt mw
--- NOTE | 2023-04-18 20:43 | ER ---
Nurse's Notes [facility] Name: Joanna Baxter Age: 62 yrs Sex: Female : 1960 Arrival Date: 04/18/2023 Time: 18:36 Bed 7 Private MD: Diagnosis: Drug-induced hypoglycemia without coma;Hypokalemia Presentation: 04/18 18:38 Chief complaint: EMS states: Called EMS for low blood sugar (36), upon EMS arrival BGL ph was 16, IV established and D10 given, BGL increased to 182, RELIEF PILOT BGL 109, pt states that she took her long acting insulin this morning and has not eaten much today. Coronavirus screen: Vaccine status: Patient reports receiving the 1st dose of the Covid vaccine. Ebola Screen: No symptoms or risks identified at this time. Initial Sepsis Screen: Does the patient meet any 2 criteria? No. Patient's initial sepsis screen is negative. Does the patient have a suspected source of infection? No. Patient's initial sepsis screen is negative. Risk Assessment: Do you want to hurt yourself or someone else? Patient reports no desire to harm self or others. Onset of symptoms was April 18, 2023. 18:38 Method Of Arrival: EMS: [facility] 18:38 Acuity: LUZ 3 ph Triage Assessment: 19:11 General: Appears in no apparent distress. comfortable, well groomed, Behavior is calm, ph cooperative, appropriate for age. Pain: Denies pain. Neuro: Level of Consciousness is awake, alert, obeys commands, Oriented to person, place, time, situation. Historical: - Allergies: 19:10 No Known Allergies; ph - PMHx: 19:10 diabetes mellitus; Hypertensive disorder; ph - Immunization history:: Adult Immunizations unknown. - Social history:: Smoking status: Patient denies any tobacco usage or history of. - Family history:: not pertinent. Screenin:11 [facility] ED Fall Risk Assessment (Adult) History of falling in the last 3 months, ph including since admission No falls in past 3 months (0 pts) Confusion or Disorientation No (0 pts) Intoxicated or Sedated No (0 pts) Impaired Gait No (0 pts) Mobility Assist Device Used No (0 pt) Altered Elimination No (0 pt) Score/Fall Risk Level 0 - 2 = Low Risk Oriented to surroundings, Maintained a safe environment, Hourly rounding (assess needs \T\ fall precautionary measures) done. Abuse screen: Denies threats or abuse. Denies injuries from another. Nutritional screening: No deficits noted. Tuberculosis screening: No symptoms or risk factors identified. Assessment: 19:05 General: Appears in no apparent distress. comfortable, Behavior is calm, cooperative, jb4 appropriate for age. Pain: Denies pain. Neuro: Level of Consciousness is awake, alert, obeys commands, Oriented to person, place, time, situation. Cardiovascular: Patient's skin is warm and dry. Respiratory: Airway is patent Respiratory effort is even, unlabored, Respiratory pattern is regular, symmetrical. GI: No signs and/or symptoms were reported involving the gastrointestinal system. : No signs and/or symptoms were reported regarding the genitourinary system. EENT: No signs and/or symptoms were reported regarding the EENT system. Derm: Skin is intact, Skin is pink, warm \T\ dry. Musculoskeletal: Circulation, motion, and sensation intact. Range of motion: intact in all extremities. 20:45 Reassessment: Patient appears in no apparent distress at this time. Patient and/or jb4 family updated on plan of care and expected duration. Pain level reassessed. Patient is alert, oriented x 3, equal unlabored respirations, skin warm/dry/pink. 21:29 Reassessment: Attempted to call report, instructed to wait for call back. jb4 Vital Signs: 18:38 BP 142 / 62; Pulse 82; Resp 18; Temp 97.5; Pulse Ox 95% on R/A; Weight 77.11 kg; Height ph 5 ft. 8 in. ; 19:42 BP 130 / 67; Pulse 87; Resp 12; Pulse Ox 99% on R/A; jb4 20:45 BP 127 / 72; Pulse 90; Resp 12; Pulse Ox 100% on R/A; jb4 18:38 Body Mass Index 25.85 (77.11 kg, 172.72 cm) ph ED Course: 18:38 Patient arrived in ED. aa5 18:38 Julio Cesar Soares MD is Attending Physician. rt 18:41 Katharina Olmedo RN is Primary Nurse. ph 19:10 Triage completed. ph 19:10 Arm band placed on Patient placed in an exam room. ph 19:11 Patient has correct armband on for positive identification. Bed in low position. Call ph light in reach. Side rails up X 1. Client placed on continuous cardiac and pulse oximetry monitoring. NIBP monitoring applied. 19:15 CMP Sent. jb4 19:15 CBC with Diff Sent. jb4 19:21 Chest Single View XRAY In Process Unspecified. EDMS 20:42 Jules Cardona MD is Hospitalizing Provider. rt 21:54 No provider procedures requiring assistance completed. Patient admitted, IV remains in jb4 place. Administered Medications: 19:16 Drug: NS 0.9% IV 1000 ml Route: IV; Rate: 1 bolus; Site: right antecubital; mb9 20:30 Follow up: IV Status: Completed infusion; IV Intake: 1000ml jb4 19:55 Drug: D10 in Water IVP 250 ml Route: IVP; Site: right antecubital; jb4 21:53 Follow up: Response: No adverse reaction; Marked relief of symptoms jb4 20:50 Drug: Potassium Chloride IV 40 mEq {Note: administered over 4 hours. Provider made jb4 aware and agreed to rate change..} Route: IV; Rate: calculated rate; Site: right antecubital; 21:52 Follow up: IV Status: Infusion continued upon admission jb4 20:52 Drug: Magnesium Sulfate IVPB 2 grams {Note: Provider okayed rate change.} Route: IVPB; jb4 Infused Over: 60 mins; Site: right antecubital; 21:52 Follow up: Response: No adverse reaction; IV Status: Infusion continued upon admission; jb4 IV Intake: 50ml 20:52 Drug: Potassium Chloride PO 40 mEq Route: PO; jb4 21:53 Follow up: Response: No adverse reaction jb4 20:52 Drug: NS 0.9% IV 500 ml Route: IV; Rate: 125 ml/hr; Site: right antecubital; jb4 21:52 Follow up: IV Status: Infusion continued upon admission jb4 Medication: 19:11 VIS not applicable for this client. ph Intake: 20:30 IV: 1000ml; Total: 1000ml. jb4 21:52 IV: 50ml; Total: 1050ml. jb4 Outcome: 20:43 Decision to Hospitalize by Provider. rt 21:54 Admitted to Tele accompanied by tech, via stretcher, room 409, with chart, Report jb4 called to CLYDE Morales 21:54 Condition: stable 21:54 Discharge instructions given to patient, Instructed on the need for admit, Demonstrated understanding of instructions. 21:54 Patient left the ED. jb4 Signatures: Dispatcher [employer] Denise Baldwin, RN RN aa5 Katharina Olmedo RN RN Ab Pa RN RN jb4 Isis Heredia RN RN mb9 Julio Cesar Soares MD MD rt
[2023-04-18] MEDS ORDERED: ACETAMINOPHEN 500 MG TAB PO PRN (20:51)
--- NOTE | 2023-04-18 20:54 | P.HP ---
Certification for Inpatient Patient admitted to: Observation With expected LOS: <2 Midnights Patient will require the following post-hospital care: None Practitioner: I am a practitioner with admitting privileges, knowledge of patient current condition, hospital course, and medical plan of care. Services: Services provided to patient in accordance with Admission requirements found in Title 42 Section 412.3 of the Code of Federal Regulations Patient History Date of Service: 04/18/23 Reason for admission: hypoglycemia History of Present Illness: 62-year-old female with a past medical history of hypertension, insulin- dependent diabetes, presents to the emergency room with hypoglycemia. She reports taking her long-acting insulin and not eating lunch. Per EMS blood sugar was 16, she was given dextrose repeat blood sugar was 100, patient reports feeling generalized weakness that has been progressive. Reported some mild chest tingling, no reported chest pain, no reported pain with radiation, denies nausea vomiting diarrhea. Laboratory evaluation WBCs are normal, mild left shift of 77, CMP hyponatremia 129, hypokalemia 2.7, hypoglycemic 55, transaminitis AST 47, Chest x-ray IMPRESSION: Increased ill-defined basilar airspace disease that could reflect pneumonia or pneumonitis. Allergies No Known Allergies Allergy (Verified 02/25/13 12:43) Home Medications: Hydrocodone Bit/Acetaminophen [Hydrocodon-Acetaminophn 10-325] 1 each PO TID 02/25/13 Insulin Lispro [Humalog] 0 unit SQ ACHS 02/25/13 Metoprolol Succinate 50 mg PO DAILY 02/25/13 Omeprazole [Prilosec] 20 mg PO DAILY 02/25/13 Tizanidine [Zanaflex*] 4 mg PO BID 02/25/13 hydroCHLOROthiazide [Hydrochlorothiazide*] 25 mg PO DAILY 02/25/13 lisinopriL [Prinivil*] 20 mg PO DAILY 02/25/13 Aspirin [Aspirin EC 81 MG] 81 mg PO DAILY #0 tablet. 02/26/13 Atorvastatin Calcium [Lipitor*] 10 mg PO BEDTIME #0 tab 02/26/13 - Past Medical/Surgical History Diabetic: Yes -: gastroparesis -: HTN -: irregular Heartbeat -: leaky valve -: PNA -: thyroidectomy -: -: carpal tunnel -: cataract SX - Social History Smoking Status: Former smoker Alcohol use: Yes CD- Drugs: No Caffeine use: Yes Review of Systems 10-point ROS is otherwise unremarkable Physical Examination - Physical Exam General: Alert, In no apparent distress, Oriented x3 HEENT: Atraumatic, Normocephalic, PERRLA Neck: Supple, 2+ carotid pulse no bruit Respiratory: Clear to auscultation bilaterally, Normal air movement Cardiovascular: No edema, Normal pulses, Regular rate/rhythm, Normal S1 S2 Capillary refill: <2 Seconds Gastrointestinal: Normal bowel sounds, Soft and benign Musculoskeletal: No clubbing, No swelling Integumentary: No rashes, No breakdown Neurological: Normal speech, Normal strength at 5/5 x4 extr, Cranial nerves 3-12 intact - Studies Laboratory Data (last 24 hrs) 04/18/23 19:06: Sodium 129 L, Potassium 2.7 L, BUN 12, Creatinine 0.85, Glucose 55 L, Magnesium 1.9, Total Bilirubin 0.5, AST 47 H, ALT 44, Alkaline Phosphatase 97 04/18/23 19:06: WBC 9.20, Hgb 12.3, Hct 36.8, Plt Count 267 Assessment and Plan - Plan Assessment and plan Hypoglycemic episode Hypokalemia hyponatremia 129, transaminitis AST 47, PVCs on EKG Abnormal chest x-ray Insulin-dependent diabetes mellitus Essential hypertension Hyperlipidemia DVT prophylaxis Assessment and plan Hypoglycemic episode Accu-Chek every 6, hypoglycemic 55 Hypokalemia Trend electrolytes replace as needed hypokalemia 2.7, replaced in the ER Hyponatremia Normal saline w20 kcl 50 hyponatremia 129, Transaminitis transaminitis AST 47, regular alcohol use Abnormal chest x-ray Chest x-ray IMPRESSION: Increased ill-defined basilar airspace disease that could reflect pneumonia or pneumonitis, empiric Rocephin PVCs on EKG Magnesium given in the emergency room, EKG, telemetry Insulin-dependent diabetes mellitus Accu-Chek ACHS, low sliding scale level insulin Essential hypertension Resume appropriate home meds Hyperlipidemia Resume appropriate home meds DVT prophylaxis Full code Regular diet Discharge Plan: Home Plan to discharge in: 24 Hours - Advance Directives Does patient have a Living Will: No Does patient have a Durable POA for Healthcare: No - Code Status/Comfort Care Code Status: Full Code Physician Review: Patient Assessed, Agree with Above Assessment and Plan Critical Care: No Time Spent Managing Pts Care (In Minutes): 55
[2023-04-18] MEDS ORDERED: D5 0.9 NS 1,000 ML IV SCH (21:00)
[2023-04-18 21:26] LABS: Specific Gravity 1.011 (1.005-1.030); Urine Bacteria None Seen /HPF (<20); Urine Bilirubin NEGATIVE (Negative); Urine Blood Negative (Negative); Urine Clarity Clear (Clear); Urine Color Light-Yellow (Yellow); Urine Glucose 3+ (Negative); Urine Protein NEGATIVE (Negative); Urine RBC None Seen /HPF (None Seen); Urine Urobilinogen Normal (Normal); Urine pH 6.5 (5.0-7.0)
[2023-04-18 22:07] VITALS: BMI 25.4
[2023-04-18] MEDS ORDERED: LORazepam 2 MG/ML VIAL IV PRN (22:37)
[2023-04-18] MEDS ORDERED: NS KCL 20MEQ 20 MEQ/1,000 ML BAG IV SCH (23:00)
[2023-04-19 01:07] VITALS: O2SAT 100
[2023-04-19] MEDS: INSULIN -REGULAR HUMAN 50 UNIT/0.5 ML ML SQ SCH ×2 (01:08→07:55)
[2023-04-19 04:27] LABS: Absolute Lymphocytes (CBC) 1.6 K/uL (0.7-4.9); Hematocrit 33.8 % (36.0-45.0); Lymphocytes % 36.8 % (15.3-44.8); MCV 90.5 fL (80-100); MPV 9.1 fL (7.6-11.3); RBC Red Blood Cell Count 3.73 M/uL (3.86-4.86)
[2023-04-19 04:46] LABS: Albumin 3.4 g/dL (3.4-5.0); Bilirubin Total 0.8 mg/dL (0.2-1.0); Magnesium 2.3 mg/dL (1.6-2.4); Protein, Total 6.4 g/dL (6.4-8.2)
[2023-04-19] MEDS: POTASS/SODIUM PHOSPHATE 1 PKT POWD.PACK PO SCH ×3 (07:54→10:18)
[2023-04-19] MEDS ORDERED: PNEUMOCOCCAL VACCINE 0.5 ML IMVAC ONE (08:00)
[2023-04-19 08:30] VITALS: BP 138/68; TEMP 97.6
[2023-04-19] MEDS ORDERED: CEFTRIAXONE 1,000 MG in NA CHLORIDE 0.9% 50 ML IVPB SCH (09:00)
[2023-04-19] MEDS ORDERED: ENOXAPARIN 40 MG/0.4 ML SQ SCH (09:00)
--- NOTE | 2023-04-19 09:45 | P.DS ---
Admission Date: 04/18/23 Discharge Date: 04/19/23 Disposition: ROUTINE DISCHARGE Discharge Condition: GOOD Reason for Admission: hypoglycemia Brief History of Present Illness: Patient is 62 years of age with a history of insulin-dependent diabetes mellitus no change in her doses apparently she took her insulin became hypoglycemic blood sugar of 16 and it appeared in the emergency room currently alert oriented responsive cooperative she is well familiar with using her insulin apparently had not eaten Hospital Course: Patient was admitted for observation did well at the time of discharge alert oriented responsive cooperative denies any complaints laboratory data shows some mild hyponatremia apparently the may be a history of some excessive alcohol intake unconfirmed time of discharge patient alert oriented responsive cooperative no new complaints vital signs all stable to resume all her home medications we will examination was normal blood sugar was a little elevated on discharge patient has short acting insulin which she can titrate patient's been on insulin for very long time prior history of hypoglycemia apparently she did not eat or drink Vital Signs/Physical Exam: Temp Pulse Resp BP Pulse Ox 97.6 F 71 17 138/68 96 04/19/23 08:00 04/19/23 08:00 04/19/23 08:00 04/19/23 08:00 04/19/23 08:00 Laboratory Data at Discharge: WBC 4.20 thou/uL (4.3-10.9) L 04/19/23 03:52 Hgb 11.4 g/dL (12.0-15.0) L 04/19/23 03:52 Hct 33.8 % (36.0-45.0) L 04/19/23 03:52 Plt Count 234 thou/uL (152-406) 04/19/23 03:52 Sodium 130 mEq/L (136-145) L 04/19/23 03:52 Potassium 4.0 mEq/L (3.5-5.1) D 04/19/23 03:52 BUN 7 mg/dL (7-18) 04/19/23 03:52 Creatinine 0.81 mg/dL (0.55-1.02) 04/19/23 03:52 Glucose 273 mg/dL (74-106) H 04/19/23 03:52 Phosphorus 2.0 mg/dL (2.5-4.9) L 04/19/23 03:52 Magnesium 2.3 mg/dL (1.6-2.4) 04/19/23 03:52 Total Bilirubin 0.8 mg/dL (0.2-1.0) 04/19/23 03:52 AST 33 U/L (15-37) 04/19/23 03:52 ALT 38 U/L (13-56) 04/19/23 03:52 Alkaline Phosphatase 92 U/L (45-117) 04/19/23 03:52 Home Medications: Hydrocodone Bit/Acetaminophen [Hydrocodon-Acetaminophn 10-325] 1 each PO TID 02/25/13 Insulin Lispro [Humalog] 0 unit SQ ACHS 02/25/13 Metoprolol Succinate 50 mg PO DAILY 02/25/13 Omeprazole [Prilosec] 20 mg PO DAILY 02/25/13 Tizanidine [Zanaflex*] 4 mg PO BID 02/25/13 hydroCHLOROthiazide [Hydrochlorothiazide*] 25 mg PO DAILY 02/25/13 lisinopriL [Prinivil*] 20 mg PO DAILY 02/25/13 Aspirin [Aspirin EC 81 MG] 81 mg PO DAILY #0 tablet. 02/26/13 Atorvastatin Calcium [Lipitor*] 10 mg PO BEDTIME #0 tab 02/26/13 Insulin Glargine/Lixisenatide [Soliqua 100 Unit-33 Mcg/ml Pen] 3 ml SQ DAILY 04/18/23 Physician Discharge Instructions: Patient to resume her regular doses of insulin and follow-up with her primary care doctor no change in her medications Diet: ADA Activity: Ad demarco
--- NOTE | 2023-04-21 11:50 | EKG ---
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
== END 2023-04-19 10:47 | disposition home or self-care (01) ==
LOC: ER 18:36 → ERHOLD 20:47 → 4TH 21:10
PROVIDERS: ADMIT Internal Medicine Sleep Medicine; ATTEND Internal Medicine Sleep Medicine
DX: E11.649 Type 2 diabetes mellitus with hypoglycemia without coma (principal); Z79.4 Long term (current) use of insulin; E87.6 Hypokalemia; E87.1 Hypo-osmolality and hyponatremia; R74.01 Elevation of levels of liver transaminase levels; E78.5 Hyperlipidemia, unspecified; R94.8 Abnormal results of function studies of other organs and systems; Z23 Encounter for immunization
CPT/HCPCS: 96365; 96361; 85025 ×2; 81001; 36415; 83735 ×2; 84100; 82947 ×3; 84484; 80053 ×2; 71045; 99285; J1815 ×2; J3480 ×2; J3475; J1650; J7040; J7030; J0696; 93005

== ENCOUNTER 2023-05-19 13:41 | Emergency (ER) | payer BC ==
--- OUTSIDE RECORDS SUMMARY | 2023-05-19 13:48 | XMS REPORT | Continuity of Care Document ---
:1960 Author Organization [facility] t Address [address] [place] [address] Care Team Providers Name Role Phone [email or web address] Attending Clinician Unavailable TORY_LUCIO_Jerri Admitting Clinician Unavailable Payers Payer Name Policy Type Policy Number Effective Date Expiration Date [facility] [id number] 2017 (PPO) 00:00:00 [place] [id number] 2021 (PPO) 00:00:00 Problems This patient has no known problems. Allergies, Adverse Reactions, Alerts This patient has no known allergies or adverse reactions. Medications This patient has no known medications. Procedures This patient has no known procedures. Encounters Start End Encounter Admission Attending Care Care Encounter Source Date/Time Date/Time Type Type Clinicians Facility Department ID 2022-01-24 2022-01-24 Outpatient [id number] PRIV [id number] [facility] 11:45:00 11:45:00 _Jerri [id number] Medica l Results This patient has no known results.
[2023-05-19] MEDS ORDERED: HYDROCODONE/APAP 5/325 MG TAB ONE (14:45)
[2023-05-19] MEDS ORDERED: TDAP (DIPHTH,PERTUSS(ACELL),TET VAC) 0.5 ML VIAL IMVAC ONE (14:46)
--- NOTE | 2023-05-19 15:23 | RAD REPORT ---
EXAM DESCRIPTION: RAD - Forearm Left - 05/19/2023 3:08 pm CLINICAL HISTORY: PAIN COMPARISON: <Comparisons> FINDINGS: Mildly impacted fracture of the distal radius is seen. Thin linear extensions of the fract ure to the radial articular surface suspected. Ulnar styloid fracture also present. No dislocation se en. Focal soft tissue swelling is seen mid forearm lateral aspect.
--- NOTE | 2023-05-19 15:25 | RAD REPORT ---
EXAM DESCRIPTION: RAD - Wrist Left 3 View - 05/19/2023 3:07 pm CLINICAL HISTORY: PAIN Pain COMPARISON: <Comparisons> FINDINGS: Slightly impacted fracture of the distal radius is noted with intra-articular extension. U lnar styloid fracture also present. Moderate surrounding soft tissue swelling. No dislocation.
--- NOTE | 2023-05-19 15:26 | RAD REPORT ---
EXAM DESCRIPTION: RAD - Hand Left 3 View - 05/19/2023 3:09 pm CLINICAL HISTORY: PAIN COMPARISON: <Comparisons> FINDINGS: Mildly impacted distal radius fracture is seen. Intraarticular extension not definitively seen. Ulnar styloid fracture is also noted. Moderate soft tissue swelling. No carpal dislocation susp ected.
--- NOTE | 2023-05-19 15:26 | RAD REPORT ---
EXAM DESCRIPTION: RAD - Forearm Right - 05/19/2023 3:08 pm CLINICAL HISTORY: PAIN COMPARISON: <Comparisons> FINDINGS: Mildly impacted distal radius fracture seen with intra-articular extension suspected. Ulna r styloid fracture also present. No elbow dislocation.
--- NOTE | 2023-05-19 15:27 | RAD REPORT ---
EXAM DESCRIPTION: RAD - Hand Right 3 View - 05/19/2023 3:08 pm CLINICAL HISTORY: PAIN COMPARISON: <Comparisons> FINDINGS: Diffuse osteopenia is seen. Mildly impacted fracture of the distal radius is seen. Ulnar s tyloid fracture also likely present. No additional fracture seen. No dislocation seen.
--- NOTE | 2023-05-19 15:35 | RAD REPORT ---
EXAM DESCRIPTION: RAD - Wrist Right 3 View - 05/19/2023 3:07 pm CLINICAL HISTORY: PAIN Pain COMPARISON: <Comparisons> FINDINGS: Mildly impacted distal radius fracture is noted. Ulnar styloid avulsion may also be presen t. No dislocation.
--- NOTE | 2023-05-19 16:57 | ER ---
Nurse's Notes [facility] Name: Joanna Baxter Age: 62 yrs Sex: Female : 1960 Arrival Date: 05/19/2023 Time: 13:41 Bed 16 Private MD: Diagnosis: Nondisplaced fracture of left ulna styloid process, initial encounter for closed fracture;Nondisplaced fracture of right ulna styloid process, initial encounter for closed fracture;Right Distal Radius fracture ;Left Distal Radius Fracture;Laceration without foreign body of left forearm;Abrasions of bilateral arms Presentation: 05/19 14:09 Chief complaint: Patient states: fell on an escalator on 05/17/23. abrasions to left me1 face, left arm and left leg. C/O persistent pain to bilateral wrists. Coronavirus screen: Vaccine status: Patient reports receiving the 2nd dose of the covid vaccine. At this time, the client does not indicate any symptoms associated with coronavirus-19. Ebola Screen: No symptoms or risks identified at this time. Initial Sepsis Screen: Does the patient meet any 2 criteria? No. Patient's initial sepsis screen is negative. Does the patient have a suspected source of infection? No. Patient's initial sepsis screen is negative. Risk Assessment: Do you want to hurt yourself or someone else? Patient reports no desire to harm self or others. Onset of symptoms was May 17, 2023. 14:09 Method Of Arrival: Ambulatory or1 14:09 Acuity: LUZ 2 me1 17:28 Care prior to arrival: None. Mechanism of Injury: Fall from standing position. Trauma db event details: [facility] occurred in the [facility]. Trauma Activation: Stat Physician: ED Physician; Name: ; Notified At: ; Arrived At: Physician: General Surgeon; Name: ; Notified At: ; Arrived At: Physician: Radiology; Name: ; Notified At: ; Arrived At: Physician: Respiratory; Name: ; Notified At: ; Arrived At: Physician: Lab; Name: ; Notified At: ; Arrived At: Historical: - Home Meds: 14:12 lisinopril Oral [Active]; Metoprolol Tartrate Oral [Active]; amlodipine [Active]; me1 insulin [Active]; - PMHx: 14:12 diabetes mellitus; Hypertensive disorder; me1 - PSHx: 14:12 None; me1 - Immunization history:: Adult Immunizations unknown. - Social history:: Smoking status: Patient/guardian denies using tobacco, but has a distant history of tobacco abuse. - Immunization history: Last tetanus immunization: unknown. Screenin:03 [facility] ED Fall Risk Assessment (Adult) History of falling in the last 3 months, db including since admission Yes- single mechanical fall (1 pt) Confusion or Disorientation No (0 pts) Intoxicated or Sedated No (0 pts) Impaired Gait No (0 pts) Mobility Assist Device Used No (0 pt) Altered Elimination No (0 pt) Score/Fall Risk Level 0 - 2 = Low Risk Oriented to surroundings, Maintained a safe environment. 17:23 Abuse screen: Denies threats or abuse. Denies injuries from another. Nutritional db screening: No deficits noted. Tuberculosis screening: No symptoms or risk factors identified. Primary Survey: 17:25 NO uncontrolled hemorrhage observed. A: The client is awake and alert. The airway is db patent. The client is alert. Airway: patent, No supplemental oxygen in use on arrival. Breathing/Chest: Spontaneous respiratory effort, equal unlabored respirations, breath sounds clear bilaterally, regular pattern, symmetrical chest rise and fall. Respiratory effort: spontaneous, unlabored. Circulation: No external hemorrhage present. Regular and strong central pulse, skin warm/dry/normal color. Disability Client is alert. Exposure/Environment: All clothing and personal items were removed. Forensic evidence collection is not deemed to be indicated at this time. Items placed in patient belonging bag. Obvious injury(ies) are noted at this time: LEFT ARM AND RIGHT ARM. Reassessment Alertness and Airway: Awake and alert. The airway is patent. Airway Patent Breathing: Spontaneous respiratory effort, equal unlabored respirations, breath sounds clear bilaterally, regular pattern with symmetrical chest rise and fall. Circulation: No external hemorrhage noted. Regular and strong central pulse, skin warm/dry/normal color. Disability: Alert. Assessment: 15:02 Reassessment: Patient appears in no apparent distress at this time. No changes from db previously documented assessment. Patient and/or family updated on plan of care and expected duration. Pain level reassessed. Patient is alert, oriented x 3, equal unlabored respirations, skin warm/dry/pink. General: Appears in no apparent distress. uncomfortable, Behavior is calm, cooperative. Pain: Complains of pain in left arm. Neuro: Level of Consciousness is awake, alert, obeys commands, Oriented to person, place, time, situation. Musculoskeletal: Range of motion: limited in left shoulder, left elbow and left wrist. 17:00 Reassessment: Patient appears in no apparent distress at this time. Patient and/or db family updated on plan of care and expected duration. Pain level reassessed. Patient is alert, oriented x 3, equal unlabored respirations, skin warm/dry/pink. Patient states feeling better. Vital Signs: 14:09 BP 173 / 85; Pulse 101; Resp 17; Temp 98.2(O); Pulse Ox 99% on R/A; Weight 74.84 kg; me1 Height 5 ft. 8 in. ; Pain 7/10; 17:00 BP 165 / 90; Pulse 99; Resp 16; Pulse Ox 99% on R/A; db 14:09 Body Mass Index 25.09 (74.84 kg, 172.72 cm) me1 14:09 Pain Scale: Adult me1 Ramin Coma Score: 16:23 Eye Response: spontaneous(4). Motor Response: obeys commands(6). Verbal Response: db oriented(5). Total: 15. Trauma Score (Adult): 16:23 Eye Response: spontaneous(1); Verbal Response: oriented(1); Motor Response: obeys db commands(2); Systolic BP: > 89 mm Hg(4); Respiratory Rate: 10 to 29 per min(4); Ramin Score: 15; Trauma Score: 12 ED Course: 13:45 Patient arrived in ED. mg5 13:52 Waqas Li DO is Attending Physician. ms3 14:06 Isis Heredia, CLYDE is Primary Nurse. mb9 14:11 Triage completed. me1 14:12 Arm band placed on Patient placed in waiting room. me1 15:08 Wrist Left (3 View) XRAY In Process Unspecified. EDMS 15:08 Wrist Right 3 View XRAY In Process Unspecified. EDMS 15:08 Forearm Right XRAY In Process Unspecified. EDMS 15:08 Forearm Left XRAY In Process Unspecified. EDMS 15:08 Hand Right 3 View XRAY In Process Unspecified. EDMS 15:08 Hand Left 3 View XRAY In Process Unspecified. EDMS 16:23 REMOVED PATIENT RINGS. UNABLE TO REMOVE LAST 2 RINGS ON LEFT HAND AND 1 RING ON RIGHT db HAND. 16:49 Dressings: Kerlix X 1; left arm non-adherent dressing x 1 left arm. db 16:50 Patient has correct armband on for positive identification. Bed in low position. Call db light in reach. Side rails up X 1. Pulse ox on. NIBP on. 17:19 Orthoglass splint: Sugar tong splint applied on bilateral arms. bp 17:23 Provided Education on: DISCHARGE. db 17:23 Patient did not have IV access during this emergency room visit. db 17:29 Thermoregulation: warm blanket given to patient. db 17:29 Patient maintains SpO2 saturation greater than 95% on room air. 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 db Exp: 10/23/2023. Lot #: [id number]. } Route: IM; Site: right deltoid; 14:55 Drug: HYDROcodone-acetaminophen PO 5 mg-325 mg 1 tabs Route: PO; db Medication: 16:23 Vaccine Information Statement (VIS) provided today. Questions and/or concerns db addressed. VIS edition date: May 11, 2021. Intake: 17:28 PO: 0ml; Total: 0ml. db Outcome: 16:56 Discharge ordered by . ms3 17:23 Discharged to home ambulatory, with family. db 17:23 Condition: stable 17:23 Discharge instructions given to patient, family, Instructed on discharge instructions, follow up and referral plans. 17:29 Patient's length of stay was not longer than 2 hours. db 17:29 Patient left the ED. db Signatures: Dispatcher [employer] EDMS Melvin Peng RN RN Waqas Kilgore DO DO ms3 Radha Esparza, RN RN db Isis Heredia RN RN mb9 Tiarra Martin, CLYDE RN me1 Liliana Wiley mg5 Corrections: (The following items were deleted from the chart) 17:24 15:03 [facility] ED Fall Risk Assessment (Adult) History of falling in the last 3 months, db including since admission No falls in past 3 months (0 pts) Confusion or Disorientation No (0 pts) Intoxicated or Sedated No (0 pts) Impaired Gait No (0 pts) Mobility Assist Device Used No (0 pt) Altered Elimination No (0 pt) Score/Fall Risk Level 0 - 2 = Low Risk Oriented to surroundings, Maintained a safe environment, db
--- NOTE | 2023-05-19 16:57 | EDPHYS ---
Physician Documentation [facility] Name: Joanna Baxter Age: 62 yrs Sex: Female : 1960 Arrival Date: 05/19/2023 Time: 13:41 Bed 16 Private MD: ED Physician Waqas Li HPI: 05/19 14:57 This 62 yrs old Female presents to ER via Ambulatory with complaints of Fall Injury, ms3 Wrist Pain - Both. 14:57 62-year-old female with past medical history of diabetes and hypertension presents ms3 status post falling on escalator 2 days prior to arrival. Patient states she is having left and right hand, wrist, forearm pain. Patient states her pain is a 10/10. Patient states pain is worse with lifting her arms. Patient denies alleviating factors. Patient is unsure of her last tetanus vaccination.. Historical: - Home Meds: 14:12 lisinopril Oral [Active]; Metoprolol Tartrate Oral [Active]; amlodipine [Active]; me1 insulin [Active]; - PMHx: 14:12 diabetes mellitus; Hypertensive disorder; me1 - PSHx: 14:12 None; me1 - Immunization history:: Adult Immunizations unknown. - Social history:: Smoking status: Patient/guardian denies using tobacco, but has a distant history of tobacco abuse. - Immunization history: Last tetanus immunization: unknown. ROS: 14:57 Constitutional: Negative for fever, and chills. Eyes: Negative for injury, pain, ms3 redness, and discharge, Cardiovascular: Negative for chest pain, and palpitations. Respiratory: Negative for shortness of breath, cough, wheezing, and pleuritic chest pain, Abdomen/GI: Negative for abdominal pain, nausea, vomiting, diarrhea, and constipation. 14:57 MS/extremity: Positive for pain, swelling, tenderness, of the Bilateral hands, wrist, forearm. 14:57 Skin: Positive for abrasion(s), of the Left shoulder, left leg. Exam: 14:57 Constitutional: This is a well developed, well nourished patient who is awake, alert, ms3 and in no acute distress. Head/Face: Normocephalic, atraumatic. Neck: Trachea midline, no cervical lymphadenopathy. Supple, full range of motion without nuchal rigidity, or vertebral point tenderness. No Meningismus. Chest/axilla: Normal chest wall appearance and motion. Nontender with no deformity. Cardiovascular: Regular rate and rhythm with a normal S1 and S2. No gallops, murmurs, or rubs. Normal PMI, no JVD. No pulse deficits. Respiratory: Lungs have equal breath sounds bilaterally, clear to auscultation and percussion. No rales, rhonchi or wheezes noted. No increased work of breathing, no retractions or nasal flaring. 14:57 Musculoskeletal/extremity: Extremities: Patient was swelling and tenderness palpation of the left forearm, wrist, hand. Patient was swelling of right forearm, wrist, hand. 14:57 Skin: injury, abrasion(s), moderate sized abrasion noted, of the Left arm, left shoulder, left leg, right arm. Vital Signs: 14:09 BP 173 / 85; Pulse 101; Resp 17; Temp 98.2(O); Pulse Ox 99% on R/A; Weight 74.84 kg; me1 Height 5 ft. 8 in. ; Pain 7/10; 17:00 BP 165 / 90; Pulse 99; Resp 16; Pulse Ox 99% on R/A; db 14:09 Body Mass Index 25.09 (74.84 kg, 172.72 cm) me1 14:09 Pain Scale: Adult me1 [place] Coma Score: 16:23 Eye Response: spontaneous(4). Motor Response: obeys commands(6). Verbal Response: db oriented(5). Total: 15. Trauma Score (Adult): 16:23 Eye Response: spontaneous(1); Verbal Response: oriented(1); Motor Response: obeys db commands(2); Systolic BP: > 89 mm Hg(4); Respiratory Rate: 10 to 29 per min(4); [place] Score: 15; Trauma Score: 12 MDM: 14:05 Patient medically screened. ms3 14:57 Differential diagnosis: abrasion, contusion, fracture, sprain, strain. ms3 16:57 Data reviewed: vital signs, nurses notes, and as a result, I will discharge patient. I ms3 considered the following discharge prescriptions or medication management in the emergency department Medications were administered in the Emergency Department. See MAR. Independent interpretation of the following test(s) in the Emergency Department X-Ray: My interpretation is Xray images of right wrist reviewed by me reveals fracture. . Care significantly affected by the following chronic conditions: Diabetes, Hypertension. Counseling: I had a detailed discussion with the patient and/or guardian regarding: the historical points, exam findings, and any diagnostic results supporting the discharge/admit diagnosis, radiology results, the need for outpatient follow up, to return to the emergency department if symptoms worsen or persist or if there are any questions or concerns that arise at home. Special discussion: I discussed with the patient/guardian in detail that at this point there is no indication for admission to the hospital. It is understood, however, that if the symptoms persist or worsen the patient needs to return immediately for re-evaluation. ED course: Patient's rings removed from right and left hands. Sugar-tong splint applied to right and left forearms. On reevaluation patient's hands neurovascular intact bilaterally, alert and orient x4, no apparent distress, nontoxic-appearing, speaking full sentences, ambulatory number department. Patient to follow-up with Dr. Mixon in 2 to 3 days. Patient understands agrees with plan. All questions were answered. Return precautions discussed include worsening symptoms, or any other concerns. 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 db Exp: 10/23/2023. Lot #: [id number]. } Route: IM; Site: right deltoid; 14:55 Drug: HYDROcodone-acetaminophen PO 5 mg-325 mg 1 tabs Route: PO; db Disposition Summary: 05/19/23 16:56 Discharge Ordered Location: Home ms3 Condition: Stable ms3 Diagnosis - Nondisplaced fracture of left ulna styloid process, initial encounter for closed ms3 fracture - Nondisplaced fracture of right ulna styloid process, initial encounter for closed ms3 fracture - Right Distal Radius fracture ms3 - Left Distal Radius Fracture ms3 - Laceration without foreign body of left forearm ms3 - Abrasions of bilateral arms ms3 Discharge Instructions: - Discharge Summary Sheet ms3 - Wrist Fracture Treated With Immobilization, [id number] ms3 - Laceration Care, Adult, [id number] ms3 Forms: - Medication Reconciliation Form ms3 - Thank You Letter ms3 - Antibiotic Education ms3 - Prescription Opioid Use ms3 - Patient Portal Instructions ms3 - Leadership Thank You Letter ms3 Signatures: Dispatcher [employer] EDWaqas Hernandez DO DO ms3 Radha Esparza, RN RN db Tiarra Martin RN RN me1
[2023-05-19 17:42] VITALS: TEMP 98.2; O2SAT 99
[2023-05-19 17:44] VITALS: BP 165/90
== END 2023-05-19 17:29 | disposition home or self-care (01) ==
LOC: ER 13:41
PROC: 2W3DX1Z Immobilization of Left Lower Arm using Splint (ICD-10-PCS; principal; 2023-05-19)
PROC: 2W3CX1Z Immobilization of Right Lower Arm using Splint (ICD-10-PCS; 2023-05-19)
DX: S52.615A Nondisplaced fracture of left ulna styloid process, initial encounter for closed fracture (principal); S52.614A Nondisplaced fracture of right ulna styloid process, initial encounter for closed fracture; S52.502A Unspecified fracture of the lower end of left radius, initial encounter for closed fracture; S52.501A Unspecified fracture of the lower end of right radius, initial encounter for closed fracture; S40.812A Abrasion of left upper arm, initial encounter; S40.811A Abrasion of right upper arm, initial encounter; Z23 Encounter for immunization; I10 Essential (primary) hypertension; E11.9 Type 2 diabetes mellitus without complications
CPT/HCPCS: 90471; 99285; G0390

== ENCOUNTER → 2023-11-24 | Emergency (ER) | payer BC ==
[~2023-11-24] MED LIST: CEFTRIAXONE 1000 MG/VIAL ONE; CEPHALEXIN 250 MG CAP ONE; HYDROCODONE/APAP 10/325 TAB ONE; KETOROLAC 30 MG/ML INJ ONE; LIDOCAINE 1% MPF 2 ML AMPULE ONE; PROMETHAZINE 25 MG TABLET ONE
--- OUTSIDE RECORDS SUMMARY | 2023-11-24 04:29 | XMS REPORT | Continuity of Care Document ---
Author Name Unknown Address [address] [place] [address] [address] thconnect Address [address] [place] [address] 1 [address] [place] [address] Care Team Providers Care Applied Researcher Name Role Phone JASWINDER_Jerri Attending Clinician Unavailab le JASWINDER_Jerri Admitting Clinician Unavailab le Payers Payer Name Policy Type Policy Number Effective Date Expirati on Date Source [employer] (PP[place]) [id number] 2017 00:00:00 [place] [id number] 2021 00:00:00 Encounters Start Date/Time End Date/Time Encounter Type Admission Type Attending Clinicians Care Facility Care Department Encounter ID Source 2022-01-24 11:45:00 2022-01-24 11:45:00 Outpatient JASWINDER Cross [facility] [id number] [facility]
--- NOTE | 2023-11-24 06:24 | EDPHYS ---
Physician Documentation [facility] Name: Joanna Baxter Age: 63 yrs Sex: Female : 1960 Arrival Date: 11/24/2023 Time: 04:25 Bed 5 Private MD: ED Physician Yusef Khoury HPI: 11/24 05:20 This 63 yrs old Black Female presents to ER via Ambulatory with complaints of sp4 Toothache, Jaw Pain. 06:18 63 year old female presents with right lower dental pain starting several days ago sp4 associated with pain radiation down the right neck. Patient has upper and lower partial dentures that were done in [place] several years ago. Teeth 28 and 29 are the source of pain . . Historical: - Allergies: 04:39 No Known Allergies; jb4 - PMHx: 04:39 diabetes mellitus; Hypertensive disorder; Hypercholesterolemia; jb4 - PSHx: 04:39 ; Carpal tunnel LYSSA; jb4 - Immunization history:: Adult Immunizations up to date. - Social history:: Smoking status: Patient denies any tobacco usage or history of. Patient uses alcohol, occasionally. - Family history:: not pertinent. ROS: 06:18 Constitutional: Negative for fever, chills, and weight loss, Positive right lower sp4 dental pain 06:18 All other systems are negative, Exam: 06:18 Constitutional: This is a well developed, well nourished patient who is awake, alert, sp4 and in no acute distress. Head/Face: Normocephalic, atraumatic. Eyes: Pupils equal round and reactive to light, extra-ocular motions intact. Lids and lashes normal. Conjunctiva and sclera are not injected. Cornea within normal limits. Periorbital areas with no swelling, redness, or edema. ENT: Nares patent. No nasal discharge, no septal abnormalities noted. Tympanic membranes are normal and external auditory canals are clear. Oropharynx with no redness, swelling, or masses, exudates, or evidence of obstruction, uvula midline. Mucous membranes moist. Teeth #28 and 29 appear to be the source of pain. Tooth #28 has small size gingival abscess tracking towards the root on the buccal surface of the tooth. Neck: Trachea midline, no thyromegaly or masses palpated, and no cervical lymphadenopathy. Supple, full range of motion without nuchal rigidity, or vertebral point tenderness. Chest/axilla: Normal chest wall appearance and motion. Nontender with no deformity. No lesions are appreciated. Cardiovascular: Regular rate and rhythm with a normal S1 and S2. No gallops, murmurs, or rubs. Normal PMI, no JVD. No pulse deficits. Respiratory: Lungs have equal breath sounds bilaterally, clear to auscultation and percussion. No rales, rhonchi or wheezes noted. No increased work of breathing, no retractions or nasal flaring. Abdomen/GI: Soft, with normal bowel sounds. No distension or tympany. No guarding or rebound. No evidence of tenderness throughout. Back: No spinal tenderness. No costovertebral tenderness. Skin: Warm, dry with normal turgor. Normal color with no rashes, no lesions, and no evidence of cellulitis. MS/ Extremity: Pulses equal, no cyanosis. Neurovascular intact. Full, normal range of motion. Neuro: Awake and alert, GCS 15, oriented to person, place, time, and situation. Cranial nerves II-XII grossly intact. Motor strength 5/5 in all extremities. Sensory grossly intact. Psych: Awake, alert, with orientation to person, place and time. Behavior, mood, and affect are within normal limits Vital Signs: 04:47 BP 160 / 94; Pulse 67; Resp 18; Temp 98(TE); Pulse Ox 97% on R/A; Weight 72.57 kg; oe Height 5 ft. 7 in. ; 06:37 BP 167 / 88; Pulse 62; Resp 16; Pulse Ox 100% on R/A; km8 04:47 Body Mass Index 25.06 (72.57 kg, 170.18 cm) oe [place] Coma Score: 04:50 Eye Response: spontaneous(4). Motor Response: obeys commands(6). Verbal Response: km8 oriented(5). Total: 15. MDM: 05:22 Patient medically screened. sp4 06:18 Differential diagnosis: dental caries, gingivitis, dental abscess, pericoronitis, sp4 aphthous ulcers. Data reviewed: vital signs, nurses notes. ED course: Dental block was done with bupivacaine, abscess cavity was washed out and explored. Patient advised clear liquid diet for the next 24 hours and also visit with a dentist soon as possible. Patient overall has difficult dentition and will probably benefit from full mouth extraction and full dentures upper and lower. . ED course: Will refer to the local dentist. . Administered Medications: 05:49 Drug: [place] PO 10 mg-325 mg 1 tabs PO once Route: PO; km8 06:37 Follow up: Response: No adverse reaction km8 05:49 Drug: Promethazine PO 25 mg PO once Route: PO; km8 06:37 Follow up: Response: No adverse reaction km8 05:49 Drug: Cephalexin PO 500 mg PO once Route: PO; km8 06:37 Follow up: Response: No adverse reaction km8 05:50 Drug: Rocephin (cefTRIAXone) IM 1 grams IM once Route: IM; Site: right ventrogluteal; km8 06:37 Follow up: Response: No adverse reaction km8 05:50 Drug: Ketorolac IM 60 mg IM once Route: IM; Site: left ventrogluteal; km8 06:37 Follow up: Response: No adverse reaction km8 06:10 Drug: Bupivacaine-Epinephrine Infiltration (0.5 %) 30 ml Infiltration once; to bedside km8 {Note: given by Dr. Khoury.} Route: Infiltration; Disposition Summary: 11/24/23 06:24 Discharge Ordered Problem: new sp4 Symptoms: have improved sp4 Condition: Stable sp4 Diagnosis - Dental caries, unspecified sp4 - Dental and gingival abscess, periapical abscess, gingival recession, periodontal sp4 disease Followup: sp4 - With: Conor Peterson DDS - When: 7 - 10 days - Reason: Recheck today's complaints Discharge Instructions: - Discharge Summary Sheet sp4 - Dental Caries, Adult, Inzl-ld-[id number] sp4 Forms: - Patient Portal Instructions sp4 Prescriptions: - Cephalexin 500 mg Oral Capsule - take 1 capsule ORAL route every 8 hours for 10 days; 30 capsule; Refills: 0, sp4 Product Selection Permitted - Ibuprofen 800 mg Oral Tablet - take 1 tablet ORAL route every 8 hours As needed take with food; 30 tablet; sp4 Refills: 0, Product Selection Permitted - Tramadol 50 mg Oral Tablet - take 1 tablet ORAL route every 8 hours as needed; 12 tablet; Refills: 0, sp4 Product Selection Permitted Signatures: Ab Mcmanus RN RN jb4 Yusef Khoury MD MD sp4 Eliza Graham, CLYDE RN km8
--- NOTE | 2023-11-24 06:24 | ER ---
Nurse's Notes [facility] Name: Joanna Baxter Age: 63 yrs Sex: Female : 1960 Arrival Date: 11/24/2023 Time: 04:25 Bed 5 Private MD: Diagnosis: Dental caries, unspecified;Dental and gingival abscess, periapical abscess, gingival recession, periodontal disease Presentation: 11/24 04:38 Chief complaint: Patient states: I have had a toothache for the past few days. Now I jb4 have a ringing in my ears, the pain radiates to my right neck and shoulder. Coronavirus screen: At this time, the client does not indicate any symptoms associated with coronavirus-19. Ebola Screen: No symptoms or risks identified at this time. Initial Sepsis Screen: Does the patient meet any 2 criteria? No. Patient's initial sepsis screen is negative. Does the patient have a suspected source of infection? No. Patient's initial sepsis screen is negative. Risk Assessment: Do you want to hurt yourself or someone else? Patient reports no desire to harm self or others. Onset of symptoms was November 24, 2023. Transition of care: patient was not received from another setting of care. 04:38 Method Of Arrival: Ambulatory jb4 04:38 Acuity: LUZ 4 jb4 Historical: - Allergies: 04:39 No Known Allergies; jb4 - PMHx: 04:39 diabetes mellitus; Hypertensive disorder; Hypercholesterolemia; jb4 - PSHx: 04:39 ; Carpal tunnel LYSSA; jb4 - Immunization history:: Adult Immunizations up to date. - Social history:: Smoking status: Patient denies any tobacco usage or history of. Patient uses alcohol, occasionally. - Family history:: not pertinent. Screenin:[facility] ED Fall Risk Assessment (Adult) History of falling in the last 3 months, km8 including since admission No falls in past 3 months (0 pts) Confusion or Disorientation No (0 pts) Intoxicated or Sedated No (0 pts) Impaired Gait No (0 pts) Mobility Assist Device Used No (0 pt) Altered Elimination No (0 pt) Score/Fall Risk Level 0 - 2 = Low Risk Oriented to surroundings, Maintained a safe environment, Educated pt \T\ family on fall prevention, incl call for assistance when getting out of bed, Assessed \T\ reinforced patient's understanding of fall precautions. Abuse screen: Denies threats or abuse. Denies injuries from another. Nutritional screening: No deficits noted. Tuberculosis screening: No symptoms or risk factors identified. Assessment: 04:50 General: Appears in no apparent distress. Behavior is calm, cooperative, appropriate km8 for age. Pain: Complains of pain in right jaw and right neck pain. Neuro: Level of Consciousness is awake, alert, obeys commands, Oriented to person, place, time, situation. Cardiovascular: Denies chest pain, shortness of breath, Capillary refill < 3 seconds Patient's skin is warm and dry. Respiratory: Airway is patent Respiratory effort is even, unlabored, Respiratory pattern is regular, symmetrical. GI: No signs and/or symptoms were reported involving the gastrointestinal system. : No signs and/or symptoms were reported regarding the genitourinary system. EENT: Reports pain in right jaw and right neck. Derm: No signs and/or symptoms reported regarding the dermatologic system. Skin is intact, is healthy with good turgor, Skin is dry, Skin is pink, warm \T\ dry. normal, Skin temperature is warm. Musculoskeletal: No signs and/or symptoms reported regarding the musculoskeletal system. Circulation, motion, and sensation intact. Range of motion: intact in all extremities. Vital Signs: 04:47 BP 160 / 94; Pulse 67; Resp 18; Temp 98(TE); Pulse Ox 97% on R/A; Weight 72.57 kg; oe Height 5 ft. 7 in. ; 06:37 BP 167 / 88; Pulse 62; Resp 16; Pulse Ox 100% on R/A; km8 04:47 Body Mass Index 25.06 (72.57 kg, 170.18 cm) oe [place] Coma Score: 04:50 Eye Response: spontaneous(4). Motor Response: obeys commands(6). Verbal Response: km8 oriented(5). Total: 15. ED Course: 04:30 Patient arrived in ED. gm2 04:39 Triage completed. jb4 04:39 Arm band placed on right wrist. jb4 04:50 Patient has correct armband on for positive identification. Call light in reach. Side km8 rails up X 1. 04:50 No provider procedures requiring assistance completed. Patient maintains SpO2 km8 saturation greater than 95% on room air. 05:20 Potepalov, Yusef, MD is Attending Physician. sp4 06:24 Conor Peterson DDS is Referral Physician. sp4 06:37 Elzia Graham, CLYDE is Primary Nurse. km8 06:37 Patient did not have IV access during this emergency room visit. km8 06:38 Provided Education on: d/c teaching. km8 Administered Medications: 05:49 Drug: [place] PO 10 mg-325 mg 1 tabs PO once Route: PO; km8 06:37 Follow up: Response: No adverse reaction km8 05:49 Drug: Promethazine PO 25 mg PO once Route: PO; km8 06:37 Follow up: Response: No adverse reaction km8 05:49 Drug: Cephalexin PO 500 mg PO once Route: PO; km8 06:37 Follow up: Response: No adverse reaction km8 05:50 Drug: Rocephin (cefTRIAXone) IM 1 grams IM once Route: IM; Site: right ventrogluteal; km8 06:37 Follow up: Response: No adverse reaction km8 05:50 Drug: Ketorolac IM 60 mg IM once Route: IM; Site: left ventrogluteal; km8 06:37 Follow up: Response: No adverse reaction km8 06:10 Drug: Bupivacaine-Epinephrine Infiltration (0.5 %) 30 ml Infiltration once; to bedside km8 {Note: given by Dr. Khoury.} Route: Infiltration; Medication: 04:50 VIS not applicable for this client. km8 Outcome: 06:24 Discharge ordered by . sp4 06:37 Discharged to home ambulatory, with family, km8 06:37 Condition: good 06:37 Discharge instructions given to patient, family, Instructed on discharge instructions, follow up and referral plans. medication usage, Demonstrated understanding of instructions, follow-up care, medications, Prescriptions given X 3, 06:38 Patient left the ED. km8 Signatures: Ab Mcmanus, RN RN jb4 Gregory Calderon Sergey, MD MD sp4 Colleen Wolff [facility] Eliza Graham, CLYDE RN km8
[2023-11-24 06:53] VITALS: BP 167/88; TEMP 98; O2SAT 100
== END ==
LOC: ER 04:25
DX: K02.9 Dental caries, unspecified (principal); K04.7 Periapical abscess without sinus; K06.010 Localized gingival recession, unspecified; K05.6 Periodontal disease, unspecified
CPT/HCPCS: Q0169; J0696

== ENCOUNTER 2024-01-06 11:00 | Day surgery (SDC) | payer BC ==
--- NOTE | 2024-01-05 10:36 | RAD REPORT ---
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 Lungs: No evidence of edema or pneumonia. Pleural: No significant pleural effusions or pneumothorax. Cardiac: The heart size is within normal limits. Mediastinum: Within normal limits. Bones: No acute fractures. Other: None IMPRESSION: No acute cardiopulmonary disease.
[2024-01-05 11:15] LABS: Absolute Eosinophils 0.1 K/uL (0-0.5); Absolute Lymphocytes (CBC) 1.2 K/uL (0.7-4.9); Absolute Monocytes 0.4 K/uL (0.1-1.3); Absolute Neutrophil 3.4 K/uL (1.8-8.0); Basophils % 0.5 % (0-1.3); Hematocrit 36.1 % (36.0-45.0); Hemoglobin 12.4 g/dL (12.0-15.0); Lymphocytes % 23.6 % (15.3-44.8); MCHC 34.4 g/dL (32.0-36.0); MCV 87.2 fL (80-100); MPV 9.2 fL (7.6-11.3); Monocytes % 7.9 % (3.3-12.3); Platelets 325 thou/uL (152-406); RBC Red Blood Cell Count 4.14 M/uL (3.86-4.86); Red Cell Distribution Width 13.1 % (12.1-15.2)
[2024-01-05 11:23] LABS: PT Prothrombin Time 10.2 SECONDS (9.5-12.5); PTT, Activated Partial Thromb 30.7 SECONDS (24.3-36.9); Protime INR 0.93
[2024-01-05 11:32] LABS: Anion Gap 10.6 mEq/L (5.0-15.0); Potassium 3.6 mEq/L (3.5-5.1)
[2024-01-06] MEDS ORDERED: NA CHLORIDE 0.9% 500 ML ONE (11:16)
[2024-01-06] MEDS ORDERED: HEPA 1000U/500MLS 2,000 UNIT/1,000 ML BAG IV ONE (13:32)
[2024-01-06] MEDS ORDERED: VERAPAMIL HCL 10 MG/4 ML VIAL IV ONE (13:32)
[2024-01-06] MEDS ORDERED: LIDOCAINE 1% 20 ML MDV ONE (13:32)
[2024-01-06] MEDS ORDERED: HEPARIN 5000 UNIT/ML 1 ML VIAL ONE (13:33)
[2024-01-06] MEDS ORDERED: TICAGRELOR 90 MG TABLET PO ONE (13:33)
[2024-01-06] MEDS ORDERED: FENTANYL CITR 100 MCG/2 ML ONE (13:33)
[2024-01-06] MEDS ORDERED: MIDAZOLAM HCL 2 MG/2 ML INJ ONE (13:33)
[2024-01-06] MEDS ORDERED: ATROPINE SULF 1 MG/10 ML SYR IV ONE (13:33)
[2024-01-06] MEDS ORDERED: CLOPIDOGREL 75 MG TABLET ONE (13:34)
[2024-01-06] MEDS ORDERED: ASPIRIN 325 MG TAB ONE (13:34)
[2024-01-06] MEDS ORDERED: HEPARIN 10,000 UNIT/10 ML VIAL IV ONE (13:34)
--- NOTE | 2024-01-06 15:21 | OP ---
Date of Procedure: 01/06/2024 Surgeon: SAULO ROSS Procedures Performed: 1.Selective coronary angiogram. 2.Left heart catheterization. Indication: Chest pain. Abnormal stress test. Access: Right radial artery 6-Algerian, closed with TR band. Complications: None. Bleeding: Less than 20 mL. Anesthesia: Total sedation time was 30 minutes. Used fentanyl and Versed. Description Of Procedure: After risks, benefits, and alternatives were explained, the patient agreed to procedure and signed informed consent. The patient was brought into the cardiac catheterization laboratory, prepped and draped in usual sterile fashion. Then, I accessed right radial artery using pediatric micropuncture kit and placed a 6-Algerian Slender sheath and took 5-Algerian [place] 4.0 catheter into the aortic root, over a J-wire, engaged the left main and took standard views and then in the R CA, took standard views, and the catheter was pushed over the wire into the LV, measured the LVEDP. Pullback did not record any significant gradient. Then, I removed the catheter and the sheath, place d TR band with good hemostasis. Findings: 1.Left main; large and normal. 2.LAD; proximal segment is large. Mid segment has focal 30% to 40% and then becomes small and elizabeth l diagonal branches. 3.Left circumflex; moderate size and normal. 4.RCA; large and dominant and normal. 5.LVEDP borderline elevated at 40 mmHg. Conclusion: 1.Mild nonobstructive coronary artery disease. 2.Normal LVEDP. Recommendation: Medical management and close monitoring. SR/MODL Voice ID: [id number] Report ID: [id number]
[2024-01-06 16:29] VITALS: BP 131/67; O2SAT 96
== END 2024-01-06 16:10 | disposition home or self-care (01) ==
LOC: CCL 11:00
PROVIDERS: ATTEND Internal Medicine
DX: I25.10 Atherosclerotic heart disease of native coronary artery without angina pectoris (principal); I10 Essential (primary) hypertension; E78.2 Mixed hyperlipidemia; E10.9 Type 1 diabetes mellitus without complications; Z87.891 Personal history of nicotine dependence; Z79.4 Long term (current) use of insulin; Z79.899 Other long term (current) drug therapy
CPT/HCPCS: 93005; 85025; 80048; 36415; 83721; 85610; 82947; 85730; 71046; 93458; 76937; C1893; Q9966; J1644; J2001; J2250; J3010; J7040; 99152; 99153; J0461

== ENCOUNTER 2024-11-01 12:41 | Emergency (ER) | payer BC ==
--- OUTSIDE RECORDS SUMMARY | 2024-11-01 12:45 | XMS REPORT | Continuity of Care Document ---
Author Name Unknown Address [address] [facility] [address] [place] [address] [facility] thconnect Address [address] [facility] [address] [place] [address] Care Team Providers Care Operating Manager Name Role Phone Deidre Attending Clinician Wendy Kelley, Raheem Fam Pob I Attending Clinician UnavailCecelia Restrepo Attending Clinician Doctor Unassigned, Ray Attending Clinician U navailable Deidre Admitting Clinician Wendy rivas Payers Payer Name Policy Type Policy Number Effective Date Expirati on Date Source [facility] (O) [id number] 2017 00:00:00 [place] [id number] 2021 00:00:00 Problems Condition Name Condition Details Condition Category Status Onset Date Resolution Date Last Treatment Date Treating Clinician Comments Source Essential hypertensi on, benign Essential hypertensi on, benign Disease Active [facility] 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 [facility] Retinopath y Retinopath y Disease Active [facility] Gastropare sis Gastropare sis Disease Active [facility] Allergies, Adverse Reactions, Alerts Allergy Name Allergy Type Status Severity Reaction(s) Onset Date Inactive Date Treating Clinician Comments Source NO KNOWN ALLERGIE S Drug Class Active [facility] Social History Social Habit Start Date Stop Date Quantity Comments Source Sex Assigned At [facility] Exposure to SARS-CoV-2 (event) Not sure [facility] Tobacco use and exposure 2017-09-01 00:00:00 2017-09-01 00:00:00 Never used [facility] Alcohol intake 2017-09-01 00:00:00 2017-09-01 00:00:00 Current drinker of alcohol (finding) [facility] Smoking Status Start Date Stop Date Source Former smoker 2017-09-01 00:00:00 2017-09-01 00:00:00 [facility] Medications Ordered Medication Name Filled Medication Name Start Date Stop Date Current Medication? Ordering Clinician Indication Dosage Frequency Signature (SIG) Comments Components Source atorvastati n (LIPITOR) 10 mg tablet 2016-10 18:00: 53 Yes 10mg Take 10 mg by mouth at bedtime. [facility] gabapentin 600 mg tablet 2016-10 18:00: 52 Yes 600mg Take 600 mg by mouth daily. [facility] HYDROcodone -acetaminop hen 10-325 mg tablet 2016-10 18:00: 53 Yes 1{tbl} Take 1 tablet by mouth every 8 (eight) hours as needed for Pain (scale 1-3). [facility] TRAZODONE HCL (TRAZODONE ORAL) 2016-10 18:00: 52 Yes 50mg Take 50 mg by mouth at bedtime. [facility] glucagon (GLUCAGON EMERGENCY) 1 mg injection 12-29 00:00: 00 Yes Use now prn for severe, emergency, low blood sugar [facility] ondansetron (ZOFRAN-ODT ) 4 mg disintegrat ing tablet 12-24 00:00: 00 Yes [id number] 4mg Take 1 Tab by mouth every 8 (eight) hours as needed for Nausea and Vomiting (N/V). [facility] insulin lispro (HUMALOG KWIKPEN) 100 unit/mL pen injector 12-24 00:00: 00 Yes Use per scale, up to 20 units daily [facility] omeprazole (PRILOSEC) 20 mg capsule 12-24 00:00: 00 Yes [id number] 20mg Take 1 Cap by mouth daily. [facility] metoprolol succinate XL (TOPROL XL) 50 mg 24 hr tablet 12-24 00:00: 00 Yes [id number] 50mg Take 1 Tab by mouth daily. [facility] lisinopril (PRINIVIL,Z ESTRIL) 20 mg tablet 12-24 00:00: 00 Yes [id number] 20mg Take 1 Tab by mouth daily. [facility] chlorthalid one (HYGROTON) 25 mg tablet 12-24 00:00: 00 Yes [id number] 25mg Take 1 Tab by mouth daily. [facility] Encounters Start Date/Time End Date/Time Encounter Type Admission Type Attending [facility] Care Facility Care Department Encounter ID Source 2022-01-24 11:45:00 2022-01-24 11:45:00 Outpatient [id number] _Luciaey [facility] [id number] [facility] 2020-10-25 10:10:36 2020-10-25 10:30:36 Laboratory Only Lab, [facility] I Cecelia Dumont [facility] [id number] [facility] 2020-10-25 10:10:36 2020-10-25 10:30:36 [facility] [id number] 2020-10-25 10:00:00 2020-10-25 10:00:00 Outpatient R [facility] [id number] [facility] 2020-10-25 00:00:00 2020-10-25 00:00:00 Letter (Out) Doctor Unassigned, Ray [facility] [id number] [facility] 2020-10-25 00:00:00 2020-10-25 00:00:00 Letter (Out) Doctor Unassigned, Ray [facility] [id number]
--- NOTE | 2024-11-01 14:43 | RAD REPORT ---
EXAM: Hand Right 3 View HISTORY: Swelling;Pain COMPARISON: None FINDINGS: Acute displaced fracture of the fifth proximal phalanx at the proximal aspect of the metaphysis. Ther e is apex volar angulation and up to two thirds shaft width of displacement. No intra-articular extension. IMPRESSION: Displaced fifth proximal phalanx fracture.
--- NOTE | 2024-11-01 14:43 | RAD REPORT ---
EXAMINATION: Wrist Right 3 View CLINICAL INDICATION: Female, 63 years old. Swelling;Pain RIGHT COMPARISON: 05/19/2023 FINDINGS: Deformity at the distal radius likely from a remote healed fracture. No acute fractures identified. Widening of the scapholunate interval, increased from prior, likely from an age-indeterminate scaphol unate ligament injury. No significant focal degenerative change. Other: Mild degenerative changes are present the base of the thumb. IMPRESSION: No acute osseous abnormality.
[2024-11-01] MEDS ORDERED: HYDROCODONE/APAP 5/325 MG TAB ONE ×2 (17:30→17:33)
[2024-11-01] MEDS ORDERED: KETOROLAC 30 MG/ML INJ ONE (17:32)
--- NOTE | 2024-11-01 17:53 | ER ---
Nurse's Notes [facility] Name: Joanna Baxter Age: 63 yrs Sex: Female : 1960 Arrival Date: 11/01/2024 Time: 12:41 Bed 11 Private MD: Diagnosis: Displaced fracture of proximal phalanx of finger Presentation: 11/01 13:02 Chief complaint: Patient states: she fell off a step yesterday morning and attempted to ap3 catch herself with her right hand. patient presents to the ED today with swelling and pain to the right hand and right pinky. patient currently rates her pain as a 10/10 on the pain scale. Coronavirus screen: At this time, the client does not indicate any symptoms associated with coronavirus-19. Ebola Screen: No symptoms or risks identified at this time. Initial Sepsis Screen: Does the patient meet any 2 criteria? No. Patient's initial sepsis screen is negative. Does the patient have a suspected source of infection? No. Patient's initial sepsis screen is negative. Risk Assessment: Do you want to hurt yourself or someone else? Patient reports no desire to harm self or others. Onset of symptoms was October 31, 2024. 13:02 Method Of Arrival: Ambulatory ap3 13:02 Acuity: LUZ 4 ap3 Triage Assessment: 13:04 General: Appears in no apparent distress. Behavior is calm, cooperative, appropriate ap3 for age. Pain: Complains of pain in right hand Pain currently is 10 out of 10 on a pain scale. Neuro: Level of Consciousness is awake, alert, obeys commands, Oriented to person, place, time, situation, Appropriate for age. Cardiovascular: Patient's skin is warm and dry. Respiratory: Airway is patent Respiratory effort is even, unlabored, Respiratory pattern is regular, symmetrical. Musculoskeletal: Swelling present in right hand. Injury Description: fall. Historical: - Allergies: 13:04 No Known Allergies; ap3 - PMHx: 13:04 diabetes mellitus; Hypercholesterolemia; Hypertensive disorder; ap3 - PSHx: 13:04 Carpal tunnel pretty; ; ap3 - Immunization history:: Client reports receiving the 2nd dose of the Covid vaccine, Last tetanus immunization: Last tetanus immunization: unknown, Flu vaccine is up to date. - Infectious Disease History:: Denies. - Social history:: Smoking status: Patient denies any tobacco usage or history of. Screenin:05 [facility] ED Fall Risk Assessment (Adult) History of falling in the last 3 months, ap3 including since admission Yes- single mechanical fall (1 pt) Confusion or Disorientation No (0 pts) Intoxicated or Sedated No (0 pts) Impaired Gait No (0 pts) Mobility Assist Device Used No (0 pt) Altered Elimination No (0 pt) Score/Fall Risk Level 0 - 2 = Low Risk Oriented to surroundings, Maintained a safe environment, Educated pt \T\ family on fall prevention, incl call for assistance when getting out of bed, Assessed \T\ reinforced patient's understanding of fall precautions, Hourly rounding (assess needs \T\ fall precautionary measures) done, Used ambulatory aids as needed (educated on \T\ assisted with), Used gait belt as appropriate. Abuse screen: Denies threats or abuse. Nutritional screening: No deficits noted. Tuberculosis screening: No symptoms or risk factors identified. Assessment: 17:58 Reassessment: Splint placement verified by ARISTEO Jacques. jl7 Vital Signs: 13:02 BP 150 / 81; Pulse 90; Resp 17; Temp 98.1(TE); Pulse Ox 99% ; Weight 81.65 kg; Height 5 ap3 ft. 8 in. ; Pain 10/10; 13:02 Body Mass Index 27.37 (81.65 kg, 172.72 cm) ap3 13:02 Pain Scale: Adult ap3 ED Course: 12:45 Patient arrived in ED. sj2 12:50 Sawyer Ornelas FNP-C [facility]5 12:50 Andrew Ngo MD is Attending Physician. dr5 13:03 Triage completed. ap3 13:05 Arm band placed on left wrist. ap3 13:55 Hand Right 3 View XRAY In Process Unspecified. EDMS 13:55 Wrist Right 3 View XRAY In Process Unspecified. EDMS 17:52 Reagan Kim MD is Referral Physician. dr5 17:58 Rosa Brown, CLYDE is Primary Nurse. jl7 17:58 Patient has correct armband on for positive identification. Provided Education on: use jl7 of call tran. 17:58 Orthoglass splint: Ulnar gutter/Boxer splint applied on right forearm. jl7 17:58 No provider procedures requiring assistance completed. Patient did not have IV access jl7 during this emergency room visit. Administered Medications: 17:42 Drug: Ketorolac IM 30 mg IM once Route: IM; Site: left gluteus; ss 18:15 Follow up: Response: No adverse reaction; Pain is decreased jl7 17:43 Drug: HYDROcodone-acetaminophen PO 5 mg-325 mg 2 tabs PO once Route: PO; ss 18:15 Follow up: Response: No adverse reaction; Pain is decreased jl7 Medication: 17:58 VIS not applicable for this client. jl7 Outcome: 17:52 Discharge ordered by . dr5 17:59 Discharged to home ambulatory, jl7 17:59 Condition: stable 17:59 Discharge instructions given to patient, Instructed on discharge instructions, follow up and referral plans. medication usage, Demonstrated understanding of instructions, follow-up care, medications, Prescriptions given X 1, 18:00 Patient left the ED. jl7 Signatures: Dispatcher [employer] EDMS Alethea Plummer RN RN ss Leal, Jahala, RN RN jl7 Dianelys Phillip RN RN ap3 Jarek Brown 2 Sawyer Ornelas, LABOR RELATIONS SPECIALIST-C LABOR RELATIONS SPECIALIST-Cdr5
--- NOTE | 2024-11-01 17:53 | EDPHYS ---
Physician Documentation [facility] Name: Joanna Baxter Age: 63 yrs Sex: Female : 1960 Arrival Date: 11/01/2024 Time: 12:41 Bed 11 Private MD: Andrew Singletary HPI: 11/01 14:23 This 63 yrs old Female presents to ER via Ambulatory with complaints of Right dr5 Hand Injury. 14:23 The patient or guardian reports swelling, tenderness. The complaints affect the right dr5 hand diffusely. Context: The problem was sustained at home, resulted from a fall, from a standing position. Onset: The symptoms/episode began/occurred yesterday. Patient is a 63-year-old female coming in with right hand pain after falling yesterday due to FOOSH injury.. Historical: - Allergies: 13:04 No Known Allergies; ap3 - PMHx: 13:04 diabetes mellitus; Hypercholesterolemia; Hypertensive disorder; ap3 - PSHx: 13:04 Carpal tunnel pretty; ; ap3 - Immunization history:: Client reports receiving the 2nd dose of the Covid vaccine, Last tetanus immunization: Last tetanus immunization: unknown, Flu vaccine is up to date. - Infectious Disease History:: Denies. - Social history:: Smoking status: Patient denies any tobacco usage or history of. ROS: 19:21 Constitutional: as per hpi dr5 Exam: 19:21 Constitutional: This is a well developed, well nourished patient who is awake, alert, dr5 and in no acute distress. Head/Face: Normocephalic, atraumatic. Eyes: Pupils equal round and reactive to light, extra-ocular motions intact. Lids and lashes normal. Conjunctiva and sclera are non-icteric and not injected. Cornea within normal limits. Periorbital areas with no swelling, redness, or edema. Neck: Trachea midline, no thyromegaly or masses palpated, and no cervical lymphadenopathy. Supple, full range of motion without nuchal rigidity, or vertebral point tenderness. No Meningismus. Chest/axilla: Normal chest wall appearance and motion. Nontender with no deformity. No lesions are appreciated. Cardiovascular: Regular rate and rhythm with a normal S1 and S2. Normal PMI, no JVD. No pulse deficits. Respiratory: Lungs have equal breath sounds bilaterally, clear to auscultation. No rales, rhonchi or wheezes noted. No increased work of breathing, no retractions or nasal flaring. Abdomen/GI: Soft, non-tender, non-distended Back: No spinal tenderness. No costovertebral tenderness. Full range of motion. Skin: Warm, dry with normal turgor. Normal color with no rashes, no lesions, and no evidence of cellulitis. Neuro: Awake and alert, GCS 15, oriented to person, place, time, and situation. Cranial nerves II-XII grossly intact. Motor strength 5/5 in all extremities. Sensory grossly intact. Cerebellar exam normal. Normal gait. 19:21 Musculoskeletal/extremity: Extremities: grossly normal except: noted in the right hand: swelling, tenderness, ROM: full active range of motion, Circulation is intact in all extremities. Sensation intact. Vital Signs: 13:02 BP 150 / 81; Pulse 90; Resp 17; Temp 98.1(TE); Pulse Ox 99% ; Weight 81.65 kg; Height 5 ap3 ft. 8 in. ; Pain 10/10; 13:02 Body Mass Index 27.37 (81.65 kg, 172.72 cm) ap3 13:02 Pain Scale: Adult ap3 Procedures: 19:21 Splinting: Splint applied to right hand using Orthoglass splint, applied by nurse. dr5 Examined by me, post splint application: neurovascular intact, 2+ distal pulses palpable, brisk capillary refill noted, Patient tolerated well. MDM: 12:50 Medical Screening Exam initiated dr5 19:21 Differential diagnosis: dislocation, open fracture, closed fracture, contusion. Data dr5 reviewed: vital signs, nurses notes. I considered the following discharge prescriptions or medication management in the emergency department Medications were administered in the Emergency Department. See MAR. Care significantly affected by the following chronic conditions: Diabetes, Hypertension. Care significantly affected by the following Social Determinants of Health: Poor access to healthcare and/or lack of insurance, Poor access to transportation, Problems related to employment. Counseling: I had a detailed discussion with the patient and/or guardian regarding the historical points, exam findings, and any diagnostic results supporting the discharge/admit diagnosis, the presence of at least one elevated blood pressure reading (>120/80) during this emergency department visit, radiology results, the need for outpatient follow up, for definitive care, a family practitioner, a orthopedic surgeon, to return to the emergency department if symptoms worsen or persist or if there are any questions or concerns that arise at home. Medication response: Toradol markedly relieved the patient's pain. ED course: Ulnar gutter splint applied in ER. X-ray reports printed and put in discharge for patient. Plan is for patient to go to her orthopedic tomorrow morning as she called today and said that they had an opening for her. If patient is unable to get orthopedic tomorrow, she will call either Dr. Heranndez or Dr. Hans Chao to make an appointment. Patient is feeling better after medication and splint application. All questions answered. Patient to return for worsening symptoms.. 11/01 13:07 Order name: Hand Right 3 View XRAY; Complete Time: 14:46 dr5 11/01 13:07 Order name: Wrist Right 3 View XRAY; Complete Time: 14:44 dr5 11/01 14:54 Order name: Splint - Ulnar Gutter; Complete Time: 19:06 dr5 Administered Medications: 17:42 Drug: Ketorolac IM 30 mg IM once Route: IM; Site: left gluteus; ss 18:15 Follow up: Response: No adverse reaction; Pain is decreased jl7 17:43 Drug: HYDROcodone-acetaminophen PO 5 mg-325 mg 2 tabs PO once Route: PO; ss 18:15 Follow up: Response: No adverse reaction; Pain is decreased jl7 Disposition: 11/02 14:20 Co-signature as Attending Physician, Andrew Ngo MD I agree with the assessment and mireya plan of care. Disposition Summary: 11/01/24 17:52 Discharge Ordered Notes: Location: Home dr5 Condition: Stable dr5 Diagnosis - Displaced fracture of proximal phalanx of finger dr5 Followup: dr5 - With: Emergency Department - When: As needed - Reason: Worsening of condition Followup: dr5 - With: Private Physician - When: 1 - 2 days - Reason: Recheck today's complaints, Continuance of care, Re-evaluation by your physician Followup: dr5 - With: Reagan Hernandez MD - When: 1 - 2 days - Reason: Recheck today's complaints, Continuance of care, Re-evaluation by your physician Discharge Instructions: - Discharge Summary Sheet dr5 - Cast or Splint Care, Adult dr5 - Finger Fracture, Adult dr5 Forms: - Medication Reconciliation Form dr5 - Prescription Opioid Use dr5 - Patient Portal Instructions dr5 - Leadership Thank You Letter dr5 Prescriptions: - acetaminophen-codeine 300-15 mg Oral tablet - take 1 tablet ORAL route every 6 hours As needed as needed for pain; 20 tablet; dr5 Refills: 0, Product Selection Permitted Signatures: Dispatcher [employer] Andrew Enrique MD MD cha Blanchard, Shelby, RN RN ss Dianelys Phillip RN RN ap3 Sawyer Ornelas, DERRICK MAN-C [facility]5 Rosa Brown RN jl7 Corrections: (The following items were deleted from the chart) 11/01 19:21 14:23 Patient is a 63-year-old female. dr5 dr5
[2024-11-01 21:18] VITALS: BP 150/81; TEMP 98.1; O2SAT 99
== END 2024-11-01 18:00 | disposition home or self-care (01) ==
LOC: ER 12:41
PROC: 2W3JX1Z Immobilization of Right Finger using Splint (ICD-10-PCS; principal; 2024-11-01)
DX: S62.616A Displaced fracture of proximal phalanx of right little finger, initial encounter for closed fracture (principal)
CPT/HCPCS: 96372; 99284

== ENCOUNTER 2025-07-20 15:34 | Emergency (ER) | payer BC ==
--- OUTSIDE RECORDS SUMMARY | 2025-07-20 15:37 | XMS REPORT | Continuity of Care Document ---
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 Name Role Phone Pcp, Patient Does Not Have A Primary Care Physic yesi Jorge Presley Attending Clinician Unavailable Doctor Unassigned, Newton Hamilton Attending Clinician U navailable Deidre Attending Clinician Unavailab rob Lab, Adc Fam Pob I Attending Clinician Unavailab Cecelia Rubi Attending Clinician [phone] Doctor Unassigned, Newton Hamilton Attending Clinician U navailable Dulce Herron Admitting Clinician Unavailable Deidre Admitting Clinician Unavailab rivas Payers Payer Name Policy Type Policy Number Effective Date Expirati on Date Source [facility] ([facility]) [id number] 2017 00:00:00 [place]) [id number] 2021 00:00:00 Problems Condition Name Condition Details Condition Category Status Onset Date Resolution Date Last Treatment Date Treating Clinician Comments Source Essential hypertensi on, benign Essential hypertensi on, benign Disease Active [facility] 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 Sexual orientation U [facility] Exposure to SARS-CoV-2 (event) 2020-09-25 00:00:00 2020-10-25 10:17:[address] [facility] Alcohol intake 2017-09-01 00:00:00 2017-09-01 00:00:00 Current drinker of alcohol (finding) [facility] Alcoholic beverage intake 2017-08-15 00:00:00 2017-08-15 00:00:00 Current drinker of alcohol (finding) [facility] History of Social function 2017-08-15 00:00:00 2017-08-15 00:00:00 [facility] Tobacco use and exposure 2012-07-31 00:00:00 2012-07-31 00:00:00 Smokeless tobacco non-user [facility] Sex assigned at 1960 00:00:00 1960 00:00:00 [facility] Smoking Status Start Date Stop Date Source Ex-smoker 2012-07-31 00:00:00 2012-07-31 00:00:00 U [facility] Medications Ordered Medication Name Filled Medication Name Start Date Stop Date Current Medication? Ordering Clinician Indication Dosage Frequency Signature (SIG) Comments Components Source atorvastajill n (LIPITOR) 10 mg tablet 2016-10 18:00: 52 Yes 10mg Take 10 mg by mouth at bedtime. [facility] gabapentin 600 mg tablet 2016-10 18:00: 52 Yes 600mg Take 600 mg by mouth daily. [facility] HYDROcodone -acetaminop hen 10-325 mg tablet 2016-10 18:00: 52 Yes 1{tbl} Take 1 tablet by mouth every 8 (eight) hours as needed for Pain (scale 1-3). [facility] TRAZODONE HCL (TRAZODONE ORAL) 2016-10 18:00: 52 Yes 50mg Take 50 mg by mouth at bedtime. [facility] atorvastati n (LIPITOR) 10 mg tablet 2016-10 12:00: 52 Yes 10mg Take 10 mg by mouth at bedtime. [facility] gabapentin 600 mg tablet 2016-10 12:00: 52 Yes 600mg Take 600 mg by mouth daily. [facility] HYDROcodone -acetaminop hen 10-325 mg tablet 2016-10 12:00: 52 Yes 1{tbl} Take 1 tablet by mouth every 8 (eight) hours as needed for Pain (scale 1-3). [facility] TRAZODONE HCL (TRAZODONE ORAL) 2016-10 12:00: 52 Yes 50mg Take 50 mg by mouth at bedtime. [facility] glucagon (GLUCAGON EMERGENCY) 1 mg injection 12-29 00:00: 00 Yes Use now prn for severe, emergency, low blood sugar [facility] glucagon (GLUCAGON EMERGENCY) 1 mg injection 12-29 00:00: 00 Yes Use now prn for severe, emergency, low blood sugar [facility] ondansetron (ZOFRAN-ODT ) 4 mg disintegrat ing tablet 12-24 00:00: 00 Yes [id number] 4mg Take 1 Tab by mouth every 8 (eight) hours as needed for Nausea and Vomiting (N/V). [facility] insulin lispro (HUMALOG KWIKPEN) 100 unit/mL pen injector 12-24 00:00: 00 Yes Use per scale, up to 20 units daily [facility] omeprazole (PRILOSEC) 20 mg capsule 12-24 00:00: 00 Yes [id number] 20mg Take 1 Cap by mouth daily. [facility] metoprolol succinate XL (TOPROL XL) 50 mg 24 hr tablet 12-24 00:00: 00 Yes [id number] 50mg Take 1 Tab by mouth daily. [facility] lisinopril (PRINIVIL,Z ESTRIL) 20 mg tablet 12-24 00:00: 00 Yes [id number] 20mg Take 1 Tab by mouth daily. [facility] chlorthalid one (HYGROTON) 25 mg tablet 12-24 00:00: 00 Yes [id number] 25mg Take 1 Tab by mouth daily. [facility] Procedures Procedure Date / Time Performed Performing Clinicia n Source [facility] 2017-09-01 06:01:00 Doctor Salena ssigned, Newton Hamilton [facility] SURGERY [facility] 2017-08-18 06:01:00 Doctor Salena ssigned, Newton Hamilton [facility] Encounters Start Date/Time End Date/Time Encounter Type Admission Type Attending [facility] Care Facility Care Department Encounter ID Source 2025-07-06 13:26:00 2025-07-06 23:59:00 Outpatient Jorge Davenport [facility] [id number] 86 [facility] 2017-08-18 00:00:00 2024-11-20 03:33:37 Orders Only Doctor Unassigned, Newton Hamilton Doctor Unassigned, Newton Hamilton [facility] ([place]) [id number] [facility] 2017-09-02 00:00:00 2024-11-20 03:32:33 Orders Only Doctor Unassigned, Newton Hamilton Doctor Unassigned, Newton Hamilton [facility] ([place]) [id number] [facility] 2020-10-25 10:10:36 2020-10-25 10:30:36 [facility] [address] [id number] [facility] 2020-10-25 10:10:36 2020-10-25 10:30:36 Laboratory Only Lab, [facility] [id number] 2020-10-25 10:00:00 2020-10-25 10:00:00 Outpatient R [facility] [id number] [facility] 2020-10-25 00:00:00 2020-10-25 00:00:00 Letter (Out) Doctor Unassigned, Newton Hamilton [facility] [id number] [facility] 2020-10-25 00:00:00 2020-10-25 00:00:00 Letter (Out) Doctor Unassigned, Newton Hamilton [facility] [id number] Results Test Description Test Time Test Comments Results Result Co mments Source THROMBOPLASTIN TIME [id number] 16:55:00* Test Item Value Reference Range Interpretation Comme nts THROMBOPLASTIN TIME PARTIAL (test code = PTT) 28.3 SECONDS 26-35 N BASIC METABOLIC [id number] 15:19:00* Test Item Value Reference Range Interpretation Comme nts SODIUM (test code = NA) 121 mmol/L 136-145 LL RESULTS CALLED Francisco MCCAIN.GIANLUCAAD BACK & CONFIRMED? RHIANNA ROB.BMB 07/06/25 1519 POTASSIUM (test code = K) 4.4 mmol/L 3.4-5.0 N CHLORIDE (test code = CL) 85 mmol/L 98-107 L CARBON DIOXIDE (test code = CO2) 31 mmol/L 21-32 N ANION GAP (test code = GAP) 5 GAP calc 4-15 N GLUCOSE (test code = GLU) 375 MG/DL 70-110 H BLOOD UREA NITROGEN (test code = BUN) 11 MG/DL 7-18 N GLOMERULAR FILTRATION RATE (test code = GFR) 46 estGFR >60 L The Glomerular Filtration Rate is a calculated parameterbased on serum Creatinine, patient age and sex. GFR valuesless than 60 mL/min/1.73 square meters are indicative ofChronic Kidney Disease. Values less than 15 mL/min/1.73square meters indicate Kidney failure. The calculation forGFR is based on the CKD-EPI (2020) calculation. This formulais race indifferent and is the recommended formula for GFRby the National Kidney Foundation for Adults.The GFR will not calculate if the sex is unknown or if thepatient's age is <18 years. CREATININE (test code = CREAT) 1.3 MG/DL 0.6-1.0 H CALCIUM (test code = CA) 8.1 MG/DL 8.5-10.1 L CBC W/O [id number] 14:19:00* Test Item Value Reference Range Interpretation Comme nts WHITE BLOOD CELL (test code = WBC) 5.6 K/mm3 3.5-11.0 N RED BLOOD CELL (test code = RBC) 3.80 M/mm3 4.70-6.10 L HEMOGLOBIN (test code = HGB) 11.0 G/DL 10.4-14.9 N HEMATOCRIT (test code = HCT) 32.3 % 31.5-44.1 N MEAN CELL VOLUME (test code = MCV) 85.0 Fl 84.5-98.6 N MEAN CELL HGB (test code = MCH) 28.9 pg 27.0-34.2 N MEAN CELL HGB CONCETRATION ( test code = MCHC) 34.1 G/DL 31.5-34.0 H RED CELL DISTRIBUTION WIDTH (test code = RDW) 13.0 CV 11.5-14.5 N PLATELET COUNT (test code = PLT) 304 K/mm3 150-450 N MEAN PLATELET VOLUME (test c ode = MPV) 10.00 fL 7.0-10.5 N
[2025-07-20 17:18] LABS: Absolute Lymphocytes (CBC) 1.4 K/uL (0.7-4.9); Hematocrit 32.9 % (36.0-45.0); Hemoglobin 11.4 g/dL (12.0-15.0); MCH 29.5 pg (27.0-35.0); MCHC 34.6 g/dL (32.0-36.0); MCV 85.3 fL (80-100); MPV 8.4 fL (7.6-11.3); Nucleated RBC Absolute Count 0.0 (0-0); Nucleated Red Blood Cells % 0.1 % (0-0); RBC Red Blood Cell Count 3.86 M/uL (3.86-4.86); White Blood Count 4.40 thou/uL (4.3-10.9)
[2025-07-20 17:30] LABS: Anion Gap 10.3 mEq/L (5.0-15.0); BUN Blood Urea Nitrogen 10.0 mg/dL (7-18); Glucose Level 160.0 mg/dL (74-106); Potassium 3.3 mEq/L (3.5-5.1)
--- NOTE | 2025-07-20 17:47 | ER ---
Nurse's Notes [facility] Name: Joanna Baxter Age: 64 yrs Sex: Female : 1960 Arrival Date: 07/20/2025 Time: 15:34 Bed 14 Private MD: Diagnosis: Hyponatremia Presentation: 07/20 15:51 Chief complaint: Patient states: WAS ADVISED BY HER MD ON 07/06/2025 THAT SODIUM LEVEL dd2 121. PT REPORTS UNABLE TO GET TO THE ER OR MD FOR RECHECK. PT REPORTS SLEEPINESS, OFF BALANCE RECENTLY. PT'S GLUCOSE ON 07/06/2025 ELEVATED 375. Coronavirus screen: At this time, the client does not indicate any symptoms associated with coronavirus-19. Ebola Screen: No symptoms or risks identified at this time. Initial Sepsis Screen: Does the patient meet any 2 criteria? No. Patient's initial sepsis screen is negative. Does the patient have a suspected source of infection? No. Patient's initial sepsis screen is negative. Risk Assessment: Do you want to hurt yourself or someone else? Patient reports no desire to harm self or others. Onset of symptoms was July 06, 2025. 15:51 Method Of Arrival: Ambulatory dd2 15:51 Acuity: LUZ 3 dd2 Triage Assessment: 15:53 General: Appears in no apparent distress. Behavior is calm, cooperative, appropriate dd2 for age. Pain: Denies pain. Neuro: Reports "TIRED AND OFF BALANCE". Cardiovascular:. Historical: - Allergies: 15:53 No Known Allergies; dd2 - PMHx: 15:53 diabetes mellitus; Hypercholesterolemia; Hypertensive disorder; dd2 - PSHx: 15:53 Carpal tunnel pretty; ; dd2 - Social history:: Smoking status: Patient/guardian denies using tobacco, the patient reports quitting approximately 12 years ago. Screenin:54 [facility] ED Fall Risk Assessment (Adult) History of falling in the last 3 months, bp including since admission No falls in past 3 months (0 pts) Confusion or Disorientation No (0 pts) Intoxicated or Sedated No (0 pts) Impaired Gait No (0 pts) Mobility Assist Device Used No (0 pt) Altered Elimination No (0 pt) Score/Fall Risk Level 0 - 2 = Low Risk Oriented to surroundings. Abuse screen: Denies threats or abuse. Denies injuries from another. Nutritional screening: No deficits noted. Tuberculosis screening: No symptoms or risk factors identified. Assessment: 16:17 Reassessment: Patient and/or family updated on plan of care and expected duration. Pain ll1 level reassessed. Vital Signs: 15:51 BP 161 / 79; Pulse 71; Resp 16; Temp 98.3; Pulse Ox 98% on R/A; Weight 74.84 kg; Pain dd2 0/10; 15:51 Pain Scale: Adult dd2 ED Course: 15:37 Patient arrived in ED. im 15:38 Fr[facility] Rose [facility]C [facility] kb 15:38 Andrew Ngo MD is Attending Physician. kb 15:53 Triage completed. dd2 15:53 Arm band placed on right wrist. dd2 16:17 Patient placed in an exam room, on a stretcher. ll1 16:33 Melvin Peng, RN is Primary Nurse. bp 17:54 Patient has correct armband on for positive identification. bp 17:54 No provider procedures requiring assistance completed. IV discontinued, intact, bp bleeding controlled, No redness/swelling at site. Pressure dressing applied. 17:55 Provided Education on: na. bp Administered Medications: 17:51 Drug: Potassium Chloride PO 20 mEq PO once Route: PO; bp 17:55 Follow up: Response: No adverse reaction bp Medication: 17:55 VIS not applicable for this client. bp Outcome: 17:46 Discharge ordered by MD. kb 17:54 Discharged to home ambulatory, bp 17:54 Condition: stable 17:54 Discharge instructions given to patient, Instructed on discharge instructions, follow up and referral plans. Demonstrated understanding of instructions, follow-up care, 17:56 Patient left the ED. bp Signatures: Frannie Rose FNP-C FNP-Melvin Marin, RN RN Kelley Orozco RN RN ll1 Berkley Bright im JAVIER JOHNSON, RN RN dd2 Corrections: (The following items were deleted from the chart) 15:54 15:53 Social history: Smoking status: Patient denies any tobacco usage or history of. dd2 dd2
--- NOTE | 2025-07-20 17:47 | EDPHYS ---
Physician Documentation [facility] Name: Joanna Baxter Age: 64 yrs Sex: Female : 1960 Arrival Date: 07/20/2025 Time: 15:34 Bed 14 Private MD: Andrew Singletary HPI: 07/20 15:54 This 64 yrs old Female presents to ER via Ambulatory with complaints of Abnormal Lab kb Results. 15:54 Patient is a 64-year-old female who presents for low sodium. States she had blood work kb on July 06 that showed a sodium of 121. She was called and told to come to the ER for evaluation due to the low sodium but she did not have childcare so she waited until today. States her PCP is aware of her low sodium and it has been an ongoing issue for a while. States she is supposed to see nephrology about this. Reports her normal sodium is in the 120s. States she has had some fatigue but otherwise asymptomatic. Historical: - Allergies: 15:53 No Known Allergies; dd2 - PMHx: 15:53 diabetes mellitus; Hypercholesterolemia; Hypertensive disorder; dd2 - PSHx: 15:53 Carpal tunnel pretty; ; dd2 - Social history:: Smoking status: Patient/guardian denies using tobacco, the patient reports quitting approximately 12 years ago. ROS: 15:54 Constitutional: As per HPI kb Exam: 15:54 Constitutional: This is a well developed, well nourished patient who is awake, alert, kb and in no acute distress. Head/Face: Normocephalic, atraumatic. ENT: Moist Mucous membranes Cardiovascular: Regular rate Respiratory: Respirations even and unlabored. No increased work of breathing. Talking in full sentences Skin: Warm, dry with normal turgor. Normal color. MS/ Extremity: Pulses equal, no cyanosis. Neurovascular intact. Full, normal range of motion. Neuro: Awake and alert, GCS 15, oriented to person, place, time, and situation. Vital Signs: 15:51 BP 161 / 79; Pulse 71; Resp 16; Temp 98.3; Pulse Ox 98% on R/A; Weight 74.84 kg; Pain dd2 0/10; 15:51 Pain Scale: Adult dd2 MDM: 15:38 Medical Screening Exam initiated kb 15:55 Differential diagnosis: Abnormal electrolytes, dehydration, hyperglycemia. Data kb reviewed: vital signs, nurses notes. 17:45 External Records Reviewed: Outpatient labs: sodium 121 on 07/06 [facility] labs. Counseling: I kb had a detailed discussion with the patient and/or guardian regarding the historical points, exam findings, and any diagnostic results supporting the discharge/admit diagnosis, lab results, the need for outpatient follow up, a family practitioner, to return to the emergency department if symptoms worsen or persist or if there are any questions or concerns that arise at home. 07/20 16:04 Order name: CBC with Diff; Complete Time: 17:21 kb 07/20 16:04 Order name: BMP; Complete Time: 17:36 kb Administered Medications: 17:51 Drug: Potassium Chloride PO 20 mEq PO once Route: PO; bp 17:55 Follow up: Response: No adverse reaction bp Disposition: 07/21 07:35 Co-signature as Attending Physician, Andrew Ngo MD I agree with the assessment and mireya plan of care. Disposition Summary: 07/20/25 17:46 Discharge Ordered Notes: Location: Home kb Condition: Stable kb Diagnosis - Hyponatremia kb Followup: kb - With: Emergency Department - When: As needed - Reason: Worsening of condition Followup: kb - With: Private Physician - When: 2 - 3 days - Reason: Recheck today's complaints, Continuance of care, Re-evaluation by your physician Discharge Instructions: - Discharge Summary Sheet kb - Hyponatremia, Jign-wi-Lapa kb Forms: - Medication Reconciliation Form kb - Antibiotic Education kb - Prescription Opioid Use kb - Patient Portal Instructions kb - Leadership Thank You Letter kb Signatures: Dispatcher [employer] Frannie Hardy, RENY-Zeina OGLESBY-Andrew Betancourt MD MD cha Peltier, Brian, CLYDE RN JAVIER Edgar RN RN dd2 Corrections: (The following items were deleted from the chart) 07/20 15:54 15:53 Social history: Smoking status: Patient denies any tobacco usage or history of. dd2 dd2
[2025-07-20] MEDS ORDERED: POTASSIUM CL SA 10 MEQ TAB PO ONE (17:48)
[2025-07-20 18:20] VITALS: BP 161/79; TEMP 98.3; O2SAT 98
== END 2025-07-20 17:56 | disposition home or self-care (01) ==
LOC: ER 15:34
DX: E87.1 Hypo-osmolality and hyponatremia (principal)
CPT/HCPCS: 36415; 80048; 85025; 99283